=== PATIENT | female | born 1940 | race Caucasian/White ===

== ENCOUNTER 2017-10-23 17:51 | Inpatient (IN) | payer MEDICARE, OTHER ==
[2017-10-23 18:36] LABS: #Eosinphils 0.1 thou/uL (0.0-0.7); #Monocytes 1.1 thou/uL (0.11-0.59); #Neutrophils 10.6 thou/uL (1.40-6.50); %Eosinophils 0.4 % (0.0-10.0); %Lymphocytes 7.9 % (21.0-51.0); %Monocytes 8.3 % (0.0-10.0); %Neutrophils 83.4 % (42.0-75.0); Mean Corpuscular HGB CONC 31.8 g/dL (32.0-36.0); Mean Corpuscular Hemoglobin 28.8 pg (27.0-31.0); Mean Corpuscular Volume 90.7 fl (81.0-99.0); Mean Platelet Volume 8.3 fL (7.4-10.4); Platelet Count 204 thou/uL (130-400); Red Blood Cell (RBC) Count 2.42 mill/uL (4.20-5.40); White Blood Cell (WBC) Count 12.7 thou/uL (4.8-10.8)
[2017-10-23 18:43] LABS: PTT 43.2 SEC (22.9-36.1); Prothrombin Time 23.3 SEC (12.0-14.7)
[2017-10-23 18:53] LABS: ALT (SGPT) 141 U/L (8-55); AST (SGOT) 231 U/L (5-34); Albumin 2.3 g/dL (3.4-4.8); Alkaline Phosphatase 175 U/L (40-150); Anion Gap 12 mmol/L (10-20); BUN (Urea Nitrogen) 54 mg/dL (9.8-20.1); Bilirubin, Total 0.4 mg/dL (0.2-1.2); CK (CPK) 25 U/L (29-168); Calc. Creatinine Clearance 0 mL/min (70-130); Calcium 8.4 mg/dL (7.8-10.44); Carbon Dioxide 23 mmol/L (23-31); Chloride 105 mmol/L (98-107); Estimated GFR-MDRD 28; Globulin 2.9 g/dL (2.4-3.5); Glucose 88 mg/dL (83-110); Lipase 26 U/L (8-78); Protein, Total 5.2 g/dL (6.0-8.3); Sodium 136 mmol/L (136-145)
[2017-10-23 18:58] LABS: Troponin I 0.038 ng/mL (< 0.028)
[2017-10-23 19:00] LABS: Bilirubin Negative (Negative); Blood, Urine Negative (Negative); Clarity CLEAR (Clear); Glucose, Urine (Dipstick) Negative (Negative); Leukocyte Negative (Negative); Nitrite Negative (Negative); Protein, Urine (Dipstick) Negative (Neg-Trace); Specific Gravity, Urine 1.016 (1.002-1.036); Urobilinogen 0.2 mg/dL (0.2-1.0)
--- NOTE | 2017-10-23 19:14 | RAD ---
PORTABLE AP CHEST X-RAY 10/23/17 Altered mental status. Bilateral upper extremity edema. Recent diagnosis of UTI. COMPARISON: 05/31/13. FINDINGS: The cardiac silhouette is magnified by projection but is stable in size compared to the prior exam. T here is minimal linear and patchy densities at the left lung base which may be related to atelectasis . Developing area of pneumonitis cannot be entirely excluded. There is a curvilinear density overlyin g the lateral right upper lung zone which probably related to overlying artifact. No other interval c hange. IMPRESSION: Linear and minimal patchy densities left lung base probably related superimposition of structures and atelectasis. However, if there is clinical concern for pneumonia, followup chest x-ray is recommende d. POS: [facility]
[2017-10-23 19:43] LABS: Bicarbonate (HCO3v) 25.3 mmol/L (1.0-85.0); Calcium, Ionized 1.18 mmol/L (1.12-1.32); Hemoglobin - Calc 7.2 g/dL (12.0-18.0); O2 Tension (PvO2) 37.6 mmHg (35.0-45.0); Potassium 3.9 mmol/L (3.4-4.7); T. Carbon Dioxide 26.5 mmol/L (1.0-85.0); pH (Venous) 7.432 (7.35-7.45); vO2 Saturation-calc 73.4 % (94-98)
[2017-10-23] MEDS ORDERED: Furosemide 40 MG/4 ML VIAL ONE (19:43)
[2017-10-23] MEDS ORDERED: Vancomycin HCl 1.5 GM in Sodium Chloride 0.9% 250 ML 300 ML IVPB SCH (19:45)
[2017-10-23] MEDS ORDERED: Azithromycin 500 MG in Sodium Chloride 0.9% 250 ML 250 ML IVPB SCH (19:45)
[2017-10-23] MEDS ORDERED: Piperacillin/Tazobactam 4.5 GM in Sodium Chloride 0.9% 100 ML IVPB SCH (19:45)
--- NOTE | 2017-10-23 19:57 | CT ---
NONCONTRAST CT HEAD: 10/23/17 HISTORY: Confusion, falls, altered mental status. COMPARISON: 12/01/16. FINDINGS: Again noted are mild chronic small vessel ischemic changes and cerebral volume loss. The ventricular system is normal in size, shape and position. There is no evidence of an acute cortical infarction, h emorrhage, mass effect or midline shift. There has been no other interval change compared to the prio r study. No calvarial fracture is seen. IMPRESSION: 1. No acute intracranial abnormalities are demonstrated. 2. Mild chronic small vessel ischemic changes and cerebral volume loss. POS: [facility]
[2017-10-23] MEDS ORDERED: HYDROcodone/Acetaminophen 5/325 mg Tablet PO PRN ×2 (22:21)
[2017-10-23] MEDS ORDERED: Ondansetron ODT 4 MG TAB SL PRN (22:21)
[2017-10-23] MEDS ORDERED: Acetaminophen 325 MG TAB PO PRN (22:21)
[2017-10-23] MEDS ORDERED: Ondansetron HCl/PF 4 MG/2 ML Vial IVP PRN (22:21)
[2017-10-23] MEDS ORDERED: Sodium Chloride 0.9% 1,000 ML IV SCH (22:45)
[2017-10-23] MEDS ORDERED: Bisacodyl 5 MG TAB PO PRN (22:45)
[2017-10-23] MEDS ORDERED: Senokot 8.6 MG TAB PO PRN (22:45)
[2017-10-23 23:45] LABS: CRP (Inflammatory) 25.49 mg/dL (= or < 0.5); Uric Acid 11.9 mg/dL (2.6-6.0)
[2017-10-23 23:50] LABS: Troponin I 0.033 ng/mL (< 0.028)
[2017-10-24 06:07] LABS: #Lymphocytes 0.3 thou/uL (1.20-3.40); #Monocytes 0.3 thou/uL (0.11-0.59); #Neutrophils 9.2 thou/uL (1.40-6.50); %Basophils 0.2 % (0.0-1.0); %Eosinophils 0.2 % (0.0-10.0); %Lymphocytes 2.9 % (21.0-51.0); %Monocytes 3.3 % (0.0-10.0); %Neutrophils 93.4 % (42.0-75.0); Hemoglobin 6.7 g/dL (12.0-16.0); Mean Corpuscular HGB CONC 31.8 g/dL (32.0-36.0); Mean Corpuscular Volume 91.2 fl (81.0-99.0); Mean Platelet Volume 8.5 fL (7.4-10.4); Platelet Count 178 thou/uL (130-400); RBC Distribution Width 16.9 % (11.5-14.5); Red Blood Cell (RBC) Count 2.31 mill/uL (4.20-5.40); White Blood Cell (WBC) Count 9.9 thou/uL (4.8-10.8)
[2017-10-24 06:23] LABS: ALT (SGPT) 116 U/L (8-55); AST (SGOT) 163 U/L (5-34); Albumin 2.2 g/dL (3.4-4.8); Alkaline Phosphatase 158 U/L (40-150); Anion Gap 12 mmol/L (10-20); BUN (Urea Nitrogen) 56 mg/dL (9.8-20.1); Bilirubin, Total 0.4 mg/dL (0.2-1.2); Calc. Creatinine Clearance 43 mL/min (70-130); Calcium 8.5 mg/dL (7.8-10.44); Carbon Dioxide 24 mmol/L (23-31); Chloride 106 mmol/L (98-107); Estimated GFR-MDRD 26; Globulin 3.4 g/dL (2.4-3.5); Glucose 92 mg/dL (83-110); Potassium 3.6 mmol/L (3.5-5.1); Protein, Total 5.6 g/dL (6.0-8.3); Sodium 138 mmol/L (136-145)
--- NOTE | 2017-10-24 06:39 | HP ---
PRIMARY CARE PHYSICIAN: Des Nguyen M.D. CHIEF COMPLAINT: Altered mental status. HISTORY OF PRESENT ILLNESS: The patient is a 77-year-old female with past medical history of hyperte nsion, hypothyroidism, depression and hypercholesterolemia, who presented to the hospital with compla ints of altered mental status. I spoke with patient's son, who is at the bedside, who stated that fi ve weeks ago, the patient was living independently at home; however, after a fall, she was initially admitted at [facility]. The patient stated that at [facility], she was diagnosed with C. diff and with josé miguel lulitis of her bilateral lower extremities. The patient then was transferred to rehab for physical t herapy and strengthening. However, she continued to decline and had altered mental status at the [facility], so she was transferred to [place] for altered mental status. The patient was found to owens ve a UTI. She was then treated for the UTI and then was transferred back to the rehab facility. The patient's son stated that she was doing well; however, when he saw her today, she was very confused and very altered. Henceforth, she was transferred to [place] for further evaluation. PAST MEDICAL HISTORY: Hypertension; hypothyroidism; depression; hypercholesterolemia; possible gout versus rheumatoid arthritis, not sure. PAST SURGICAL HISTORY: Tonsillectomy, hysterectomy, cholecystectomy, appendectomy, melanoma removal in her back, rotator cuff surgery, and carpal tunnel release. SOCIAL HISTORY: She denies any tobacco, alcohol or drug use. ALLERGIES: She is allergic to LEVAQUIN and SULFA MEDICATIONS. REVIEW OF SYSTEMS: Unable to perform since the patient not very cooperative. PHYSICAL EXAMINATION: VITAL SIGNS: Temperature of 98.3, heart rate of 81, respirations of 18, 95% on 2 liters, blood press ure 130/58. GENERAL: She is awake, alert, and oriented x2 herself and her son. CARDIOVASCULAR: S1, S2 present. No murmurs, rubs or gallops. LUNGS: Mild crackles to lower bases and mild wheezing, expiratory. ABDOMEN: Soft, nontender. Bowel sounds are present x2. EXTREMITIES: She has got significant pitting edema to bilateral hands and she has got significant er ythema around at the joints of her fingers, which appears to look like tophi possible gout, very tend er to touch. Lower extremity, no edema. Pedal pulses are present x2. SKIN: The patient does have a significant possible stage 2 versus stage 3 decubitus on her left butt ock area with significant eschar covering the ulcer and also she has got significant anasarca. LABORATORY DATA AND IMAGING: White count of 12.7, hemoglobin of 7.0 and dropped from baseline of 11. 8, hematocrit of 21.9, platelets of 204. She has got no bands. Chemistry indicates a sodium of 140, potassium of 3.9, creatinine of 1.78, BUN of 54. Mildly elevated AST at 231, ALT at 141, alkaline p hosphatase at 175. CK is 25. BNP is 244.6. She did have mildly elevated troponin of 0.038 and sign ificantly elevated CRP at 25.4. Her urine is significantly normal. Her INR is 2. She did have a ch est x-ray, which indicated she does have some mild patchy density in the left lung base. She did hav e a CT head, which indicated mild chronic small vessel ischemia and cerebral volume loss. ASSESSMENT AND PLAN: The patient is a 77-year-old female, who was admitted for altered mental status . 1. Acute metabolic encephalopathy, possible due to pneumonia, possible secondary to hospital-acquire d pneumonia. We will start the patient on cefepime and vancomycin for now. We will also give patien t some DuoNebs. The patient has been using oxygen at 2-3 liters. We will continue that. 2. Significant erythema noted at her joint fingers, possible gout. It appears the patient possibly has tophi. We will check uric acid. Also, we will check a sed rate and CRP. Given her elevated cre atinine, unable to give her NSAIDs, may start her on low dose of steroids, which might help her since she has significant pain on moving her fingers bilaterally. 3. Clinically, she appears to be dehydrated. We will give her gentle fluids only 1 liter. She may need to be diuresed; however, according to the patient's son, she has not been eating very much, so t here is also a malnutrition component. 4. Malnutrition. The patient has not been eating very much. We will get dietitian. Continue to mo guillermo. 5. She does have a significant stage, appears maybe 2 decubitus, 2 maybe 3 on her left thigh. We wi ll get wound care to come see the patient. 6. Mild elevated LFTs. We will continue to monitor. If they do not tend to improve, may consider g etting a right upper quadrant ultrasound. 7. Depression. The patient's son stated that she has been pretty depressed recently. We will katalina nue to monitor. 8. We will also get a swallow evaluation for the patient and get physical therapy and occupational t herapy. 9. Significant anemia. The patient's last H&H was 11 and now is 7. Unknown patient's baseline. Sh e also does have an elevated BUN, which could be secondary to dehydration versus maybe a slow GI blee d. We will check a stool for occult and check a reticular count and continue to monitor. 10. History of Clostridium difficile. Continue to monitor. 11. Deep venous thrombosis prophylaxis. We will put the patient on sequential compression devices a nd subcu heparin.
[2017-10-24] MEDS: CEFEPIME IVPB SCH ×2 (08:23→20:59)
[2017-10-24] MEDS: SODIUM CHLORIDE 0.9% IVPB SCH ×2 (08:23→20:59)
[2017-10-24] MEDS ORDERED: Prevnar 13-Val Conj/PF 0.5 ML SYRINGE IM ONE (09:00)
[2017-10-24] MEDS ORDERED: Famotidine/PF 20 mg/2ml Vial SLOW IVP SCH ×2 (09:00)
[2017-10-24] MEDS ORDERED: Heparin 5,000 UNITS/ML VIAL SC SCH (09:00)
[2017-10-24] MEDS ORDERED: FLU VACC TS2017-18 (>65YR) 0.5 ML SYRINGE IM ONE (09:00)
[2017-10-24] MEDS ORDERED: VANCOMYCIN IVPB PRN (09:04)
[2017-10-24] MEDS ORDERED: [UNRECOGNIZED DRUG - OTHER] IVPB PRN (09:04)
[2017-10-24 09:21] LABS: Reticulocyte Count 6.8 % (0.5-1.5)
[2017-10-24 09:44] LABS: Iron 17 ug/dL (50-170); Iron Binding Capacity, Total 103 mcg/dL (265-497)
[2017-10-24] MEDS: Pantoprazole 40 MG VIAL IVP SCH ×2 (10:04→20:58)
[2017-10-24 10:32] LABS: Vitamin B12 Greater than 2000 pg/mL (211-911)
--- NOTE | 2017-10-24 10:54 | RAD ---
KUB: Date: 10/24/17 PROVIDED CLINICAL HISTORY: Altered mental status. FINDINGS: The abdominal bowel gas pattern is nonspecific. Phleboliths overlie the pelvis. No radiographically a pparent urinary tract calculi. The supine nature of this study is limited in sensitivity for detectio n of pneumoperitoneum. Lung bases are not well visualized. There is a rectangular density overlying t he abdominopelvic junction presumably reflecting material external to the patient. Degenerative garsia es are seen involving the spine. IMPRESSION: 1. Rectangular density overlies the abdomen in the midline at the level of the abdominopelvic juncti on, presumably reflecting material external to the patient. Clinical correlation is necessary. 2. Nonspecific bowel gas pattern. POS: [facility]
--- NOTE | 2017-10-24 14:03 | ULT ---
BILATERAL UPPER EXTREMITY VENOUS DOPPLER: Date: 10/24/17 PROVIDED CLINICAL HISTORY: Bilateral upper extremity swelling. FINDINGS: Iraheta scale and color Doppler sonography with spectral analysis was performed of the bilateral interna l jugular, subclavian, axillary, cephalic, basilic, brachial, ulnar, and radial veins, demonstrating a normal sonographic appearance to each. IMPRESSION: No evidence for upper extremity venous thrombosis. POS: [facility]
[2017-10-24] MEDS ORDERED: Vancomycin HCl 1.25 GM in Sodium Chloride 0.9% 250 ML 250 ML IVPB SCH (21:00)
[2017-10-25 05:17] LABS: #Basophils 0.1 thou/uL (0.0-0.2); #Lymphocytes 0.9 thou/uL (1.20-3.40); #Monocytes 0.7 thou/uL (0.11-0.59); #Neutrophils 7.6 thou/uL (1.40-6.50); %Basophils 1.5 % (0.0-1.0); %Eosinophils 0.2 % (0.0-10.0); %Lymphocytes 9.5 % (21.0-51.0); %Monocytes 7.7 % (0.0-10.0); %Neutrophils 81.1 % (42.0-75.0); Hemoglobin 8.4 g/dL (12.0-16.0); Mean Corpuscular HGB CONC 31.6 g/dL (32.0-36.0); Mean Corpuscular Hemoglobin 28.2 pg (27.0-31.0); Mean Corpuscular Volume 89.1 fl (81.0-99.0); Mean Platelet Volume 8.4 fL (7.4-10.4); Platelet Count 212 thou/uL (130-400); White Blood Cell (WBC) Count 9.4 thou/uL (4.8-10.8)
[2017-10-25 05:20] LABS: Prothrombin Time 23.1 SEC (12.0-14.7)
[2017-10-25 05:21] LABS: PTT 48.5 SEC (22.9-36.1)
[2017-10-25 05:27] LABS: ALT (SGPT) 95 U/L (8-55); AST (SGOT) 116 U/L (5-34); Albumin 2.4 g/dL (3.4-4.8); Alkaline Phosphatase 149 U/L (40-150); Anion Gap 12 mmol/L (10-20); BUN (Urea Nitrogen) 54 mg/dL (9.8-20.1); Bilirubin, Total 0.4 mg/dL (0.2-1.2); Calc. Creatinine Clearance 41 mL/min (70-130); Calcium 8.6 mg/dL (7.8-10.44); Carbon Dioxide 25 mmol/L (23-31); Chloride 108 mmol/L (98-107); Estimated GFR-MDRD 25; Globulin 3.6 g/dL (2.4-3.5); Glucose 70 mg/dL (83-110); Sodium 142 mmol/L (136-145)
[2017-10-25] MEDS: CEFEPIME IVPB SCH (09:24)
[2017-10-25] MEDS: SODIUM CHLORIDE 0.9% IVPB SCH (09:24)
[2017-10-25] MEDS: Pantoprazole 40 MG VIAL IVP SCH (09:25)
--- NOTE | 2017-10-25 09:53 | RAD ---
CHEST ONE VIEW: HISTORY: Shortness of breath. COMPARISON: Chest, one view, 10/23/2017. FINDINGS: Similar appearance of the lungs with linear and alveolar opacities. There are also opacities in the left upper lobe. No acute osseous abnormality. Heart size is mildly enlarged. IMPRESSION: Similar appearance of the interstitial and alveolar opacities of the lungs with worsening right upper lobe and left upper lobe opacities. This may reflect edema or infection. CT of the chest may be be neficial, if clinically warranted. POS: [facility]
--- NOTE | 2017-10-25 13:13 | PQF ---
CLINICAL DOCUMENTATION IMPROVEMENT CLARIFICATION FORM: ICD-10 Updated PLEASE DO AN ADDENDUM TO THE PROGRESS NOTE WITH ANY DOCUMENTATION UPDATES OR ADDITIONS AND CARRY THROUGH TO DC SUMMARY. THANK YOU. DATE: 10/25/17 ATTN: DR. GONZALEZ Please exercise your independent, professional judgment in responding to the clarification form. Clinical indicators are provided on the bottom of this form for your review Please check appropriate box(s): [ ] Aspiration Pneumonia [ ] Aspiration Bronchitis [ ] Empirically treating Gram Negative Pneumonia [ ] Empirically treating Anaerobic Pneumonia [ ] Pneumonia secondary to (specify organism / underlying disease) [ ] Simple Pneumonia (community acquired - nosocomial) [ ] Bronchopneumonia [ ] Pneumonia of unknown etiology [ ] Other diagnosis [ ] Unable to determine In addition, please specify: Present on Admission (POA): [ ] Yes [ ] No [ ] Unable to determine For continuity of documentation, please document condition throughout progress notes and discharge summary. Thank You. CLINICAL INDICATORS - SIGNS / SYMPTOMS / LABS DX: PNEUMONIA RISKS: FROM CORRECTION RECENT HOSPITALIZATION TREATMENT: IV VANCOMYCIN (ER-PRESENT) IV ZITHROMAX (ER) IV ZOSYN (ER) IV MAXIPIME (10/24-PRESENT) SOLUMEDROL (10/24-PRESENT) (This form is maintained as a part of the permanent medical record) 2014 [employer]. All Rights Reserved HERNANDEZ [email or web address] Office: [phone] [facility]
--- NOTE | 2017-10-25 13:36 | CON ---
DATE OF CONSULTATION: 10/25/2017 REASON FOR CONSULTATION: Change in mental status, possible sepsis. HISTORY OF PRESENT ILLNESS: A 77-year-old who has a history of hypertension, hyperlipidemia, and caitlin anoma removal from her back who is a detention resident and was brought to the emergency room ayde use of change in mental status. About one year ago, patient was visiting her and then she wa s living at home. Her was in [facility] [place] and she tripped and fell and struck her head on the f selvin. She sustained a subarachnoid hemorrhage which was felt to be remained stable. She was managed conservatively. At this time, she was initially brought to [place] and was given diagnosis of urinary tract infection given antimicrobials and transferred back to rehab facility and then she w as found to be confused again and then she was brought over here and admitted. Initial findings, tem perature 98.3, heart rate 81, respirations 18, O2 sat 95% on arrival. She was described as awake and alert. She had a few inspiratory crackles at the lung bases with mild wheezing, some edema and ther e was noticeable inflammatory changes around the finger joints. LABORATORY DATA AND IMAGING DATA: Initial labs with white cell count 12.7, hemoglobin 7 with an MCV 90, platelets 204,000 with 83% neutrophils. INR 2.0, pH 7.43, pCO2 38, pO2 37, is a venous gas. Sod ium 138, creatinine 1.86 with baseline of 1.37, AST 163, ALT 116 and alkaline phosphatase 158. Uric acid 11.9, albumin 2.2 and 2.4. Urinalysis with essentially normal findings. Thus far, all the [facility] les submitted for culture have been negative. Influenza test was negative as well for antigen. Imag ing studies include brain CT with no acute intracranial abnormalities, small vessel changes. Abdomen x-ray rectangular densities in midline, just probably the monitor. There is a venogram which showed no evidence of upper extremity deep vein thrombosis and a chest x-ray with interstitial and alveolar opacities of lungs. Currently, Ms. Chu is sleeping, but she is arousable at least temporarily. Sh e will wake up, but is disoriented with mumble feel sounds, but most of her answers are basically yes or no. REVIEW OF SYSTEMS: Limited because of her mental state. According to the nurse, there has been no e vidence of diarrhea. She has numerous skin ulcers described below. PAST MEDICAL HISTORY: Hypertension, hypothyroidism, depression, hyperlipidemia, fall, gout, rheumato id arthritis per history. PAST SURGICAL HISTORY: Tonsillectomy, hysterectomy, cholecystectomy, appendectomy, melanoma removal. She had a recent fall with subarachnoidal hemorrhage which was managed conservatively. SOCIAL HISTORY: Lives in a detention. Never a smoker. ALLERGIES: LEVAQUIN and SULFA. CURRENT MEDICATION LIST: Dulcolax, cefepime, Solu-Medrol, Protonix, Senokot, vancomycin. PHYSICAL EXAMINATION: VITAL SIGNS: T-max 99, currently 98.7, blood pressure 179/79, pulse 96, respirations 16-20, O2 sat 9 6%. SKIN: Shows areas of ulceration in the lateral aspect of the right thigh and left gluteal region wit h a necrotic base, irregular shaped, measuring about 12 cm x 2 cm to 4 cm. There are small ulceratio ns in the intertriginous areas in abdomen and breast. No lymphadenopathy. Peripheral IV access. e has a Moreno catheter with output and input -695. HEENT: Ocular movements are conjugate. Pupils are equal, but they are quite dilated about 4 mm and symmetric. Oral cavity with still quite a few teeth in place. Oral mucosa is moist. NECK: Supple. LUNGS: With symmetric breath sounds. No obvious crackles or wheezing. HEART: S1, S2. Few PACs or PVCs. ABDOMEN: Soft, nondistended or tender. Patient has marked tenderness on palpation of her hand and f eet joints. ASSESSMENT: 1. 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 2. Hypertension. 3. Cognitive dysfunction/delirium. 4. X-ray changes consistent with congestive changes. DISCUSSION: The most likely scenario is polyarticular gout with inflammatory changes. This could be confirmed by sampling one of the tophaceous areas and submitted to pathology for microscopic evaluat ion, but the clinical findings, plus the elevated uric acid make this diagnosis very likely. An infe ctious process appears to be less likely. The lung changes appeared to be congestive in nature. Rec ommend discontinuation of antimicrobial therapy and address the tophaceous gout. We will need to mon itor cultures until final report.
--- NOTE | 2017-10-25 15:11 | RAD ---
THREE VIEWS LEFT WRIST: Date: 10-25-17 History: Left hand pain. FINDINGS: There is no fracture or dislocation seen. There is minimal ulnar minus configuration. There does appe ar to be subcutaneous soft tissue swelling at the dorsal aspect of the hand. IMPRESSION: 1. No acute osseous abnormality left wrist. 2. Minimal ulnar minus configuration. 3. Subcutaneous soft tissue swelling dorsal aspect of the hand. POS: [facility]
--- NOTE | 2017-10-25 15:29 | RAD ---
THREE VIEWS LEFT HAND: INDICATIONS: Left hand pain. COMPARISON: Right foot radiograph dated 01/19/2011 and left foot radiograph dated 01/18/2015 FINDINGS: There is periarticular erosive change involving the index finger PIP joint, long finger DIP joint, an d small finger DIP joint. There is also some healed erosive change involving the left long finger me tacarpal head. There is mild STT osteoarthrosis. There is scattered mild IP osteoarthrosis. There is soft tissue swelling of the left hand. No acute osseous abnormality is evident. IMPRESSION: Periarticular erosive change involving the left hand, as above. Findings could be secondary to infla mmatory arthropathy, such as rheumatoid arthritis. Other entities such as psoriatic or Luis Enrique's arth ritis is not entirely excluded. POS: [facility]
[2017-10-25] MEDS ORDERED: Phytonadione 10 MG/ML AMP PO SCH (18:00)
--- NOTE | 2017-10-25 20:26 | PDOC.PN ---
- Subjective Encounter Start Date: 10/25/17 Encounter Start Time: 10:30 Patient seen and examined. No new complaints. No overnight events. Mentation improving. - Objective Resuscitation Status: Resuscitation Status DNR:Do Not Resuscitate MAR Reviewed: Yes Vital Signs & Weight: Vital Signs (12 hours) Temp Pulse Pulse Pulse Resp BP BP 10/25/17 19:00 90 22 H 10/25/17 15:44 99.7 F H 101 H 20 10/25/17 15:17 104 H 104 H 174/86 H 168/78 H 10/25/17 14:32 91 20 10/25/17 12:23 98.7 F 96 20 10/25/17 11:01 107 H 182/82 H 10/25/17 10:18 88 16 BP Pulse Ox Pulse Ox Pulse Ox 10/25/17 19:00 95 10/25/17 15:44 134/74 93 L 10/25/17 15:17 92 L 92 L 10/25/17 14:32 93 L 10/25/17 12:23 172/79 H 96 10/25/17 11:01 94 L 10/25/17 10:18 100 Weight Admit Weight 233 lb 3 oz Weight 229 lb 11.2 oz I&O: 10/24/17 10/25/17 10/26/17 06:59 06:59 06:59 Intake Total 525 905 240 Output Total 750 1600 675 Balance -225 -695 -435 Result Diagrams: 10/26/17 04:18 10/26/17 04:18 Additional Labs: Accuchecks 10/25/17 13:42 POC Glucose 102 EKG Reviewed by me: Yes (Tele SR) Phys Exam - Physical Examination Constitutional: NAD Neck: no JVD Respiratory: no rhonchi, wheezing present (scat) Dec AE at bases, Symmetrical Cardiovascular: RRR, no rub no heaves/pulsations Gastrointestinal: soft, non-tender, positive bowel sounds Musculoskeletal: edema present (B/L UE) Neurological: non-focal, moves all 4 limbs Psychiatric: A&O x 3 Dx/Plan - Plan DVT proph w/SCDs IMPRESSION: 1. Toxic Metabolic Encephalopathy - multifactorial. prob due to Pneumonia ? Aspiration 2. Anemia ?etio 3. Swallow dys - at [facility] soft/thin liqd 4. Moderate PEM 5. HTN / HLD / Deconditioning / Recent UTI at [facility]/ Recent C diff at [facility] prior to [facility]/ Depression / Coagulopathy 6. Other issues per H&P PLAN: * Consult ID/GI * s/p 1 units PRBC. * Cont modified diet * Cont Atbx / Steroids * Monitor LFTs * Vit K to correct coagulopathy * Cont current meds as below Review of Systems - Review of Systems Respiratory: negative: Cough, Dry, Shortness of Breath, Hemoptysis, SOB with Excertion, Pleuritic Pain, Sputum, Wheezing Gastrointestinal: negative: Nausea, Vomiting, Abdominal Pain, Diarrhea, Constipation, Melena, Hematochezia - Medications/Allergies Allergies/Adverse Reactions: Allergies Allergy/AdvReac Type Severity Reaction Status Date / Time ciprofloxacin [From Cipro] Allergy Verified 10/23/17 23:04 colchicine Allergy Verified 10/23/17 23:04 levofloxacin [From Levaquin] Allergy Verified 10/23/17 23:04 Sulfa (Sulfonamide Allergy Verified 10/23/17 23:04 Antibiotics) Medications: Current Medications Albuterol/Ipratropium (Duoneb) 3 ml NEB [id number] [facility] Last Admin: 10/25/17 19:00 Dose: 3 ml Bisacodyl (Dulcolax) 10 mg PO DAILYPRN PRN PRN Reason: Constipation Calcium/Vitamin D (Caltrate 600 + Vit D) 1 tab PO BID-[facility] Cyanocobalamin (Vitamin B-12) 1,000 mcg PO DAILY [facility] Folic Acid (Folvite) 1 mg PO DAILY [facility] Methylprednisolone Sodium Succinate (Solu-Medrol) 40 mg IVP DAILY [facility] Last Admin: 10/25/17 09:25 Dose: 40 mg Multivitamins (Theragran) 1 tab PO DAILY [facility] Nystatin (Mycostatin Powder) 0 gm TOP BID [facility] Pantoprazole Sodium (Protonix) 40 mg PO BID [facility] Senna (Senokot) 2 tab PO HSPRN PRN PRN Reason: Constipation Sodium Chloride (Flush - Normal Saline) 10 ml IVF Q12HR [facility] Last Admin: 10/25/17 09:25 Dose: 10 ml Sodium Chloride (Flush - Normal Saline) 10 ml IVF PRN PRN PRN Reason: Saline Flush Last Admin: 10/25/17 09:25 Dose: 10 ml
[2017-10-25] MEDS: Nystatin Powder 15 GM BOT TOP SCH (20:43)
[2017-10-26 05:32] LABS: INR-International Normal Ratio 1.6; Prothrombin Time 19.6 SEC (12.0-14.7)
[2017-10-26 05:39] LABS: #Monocytes 0.9 thou/uL (0.11-0.59); #Neutrophils 9.4 thou/uL (1.40-6.50); %Basophils 0.2 % (0.0-1.0); %Eosinophils 0.1 % (0.0-10.0); %Lymphocytes 8.5 % (21.0-51.0); %Monocytes 7.9 % (0.0-10.0); %Neutrophils 83.3 % (42.0-75.0); Hemoglobin 7.8 g/dL (12.0-16.0); Mean Corpuscular HGB CONC 31.2 g/dL (32.0-36.0); Mean Corpuscular Hemoglobin 27.6 pg (27.0-31.0); Mean Corpuscular Volume 88.7 fl (81.0-99.0); Mean Platelet Volume 8.5 fL (7.4-10.4); Platelet Count 208 thou/uL (130-400); Red Blood Cell (RBC) Count 2.83 mill/uL (4.20-5.40); White Blood Cell (WBC) Count 11.2 thou/uL (4.8-10.8)
[2017-10-26 05:45] LABS: ALT (SGPT) 89 U/L (8-55); AST (SGOT) 113 U/L (5-34); Albumin 2.3 g/dL (3.4-4.8); Alkaline Phosphatase 143 U/L (40-150); Anion Gap 11 mmol/L (10-20); BUN (Urea Nitrogen) 51 mg/dL (9.8-20.1); Bilirubin, Total 0.4 mg/dL (0.2-1.2); Calc. Creatinine Clearance 41 mL/min (70-130); Calcium 8.6 mg/dL (7.8-10.44); Carbon Dioxide 26 mmol/L (23-31); Chloride 111 mmol/L (98-107); Estimated GFR-MDRD 26; Globulin 3.4 g/dL (2.4-3.5); Glucose 90 mg/dL (83-110); Magnesium 1.9 mg/dL (1.6-2.6); Potassium 3.3 mmol/L (3.5-5.1); Protein, Total 5.7 g/dL (6.0-8.3); Sodium 145 mmol/L (136-145)
[2017-10-26 06:05] LABS: HBCM Index 0.06 S/CO (0-0.79); HBSAg Index 0.46 S/CO (0-0.99); Hep A IgM AB Non-Reactive (NonReactive); Hep B Surf Ag Non-Reactive S/CO (NonReactive); Hep C IgG Ab Non-Reactive (NonReactive); Hepatitis B Core IGM Abs Non-Reactive (NonReactive)
--- NOTE | 2017-10-26 08:35 | CON ---
DATE OF CONSULTATION: 10/25/2017 REASON FOR CONSULTATION: Anemia. HISTORY OF PRESENT ILLNESS: Ms. Chu is a 77-year-old female who was admitted to the hospital on , her last hospitalization here was about a year ago. She was brought to the emergency room b y her family from a assisted due to her bilateral upper extremity edema and altered mental status . Apparently, she has been recent UTIs as well. She was hemodynamically stable. She had a CAT scan of her brain, showed some mild ischemic changes, but no acute events. She had a chest x-ray, linear patchy densities, some possible atelectasis. Laboratory studies: Peripheral white count of 12.7, h emoglobin of 7, MCV of 90, platelet count of 204, retic of 7 and ESR of 36. INR was 2. Sodium was 1 36, potassium 4, BUN and creatinine were 54 and 1.78, AST 231, ALT 141, alkaline phosphatase 175. CR P was 25, BNP 244, total protein 5.2, albumin 2.3, lipase was normal, B12 was greater than 2000, iron was low at 17; however, TIBC was also low at 103 and ferritin was elevated at 471. Urinalysis was n egative. MEAGAN was performed which was normal. Abdominal x-ray was nonspecific. Bilateral Dopplers w ere negative. Hemoglobin dropped to 6.7 on the and occult blood was performed today which was n egative. She did receive 1 unit of blood yesterday and her hemoglobin today is 8.4. She has been se en by Dr. Huerta for possible infection when she felt to have tophaceous gout. PAST MEDICAL HISTORY: Hypertension, hypothyroidism, depression, hypercholesterolemia, possible gout versus rheumatoid arthritis. PAST SURGICAL HISTORY: Tonsillectomy, hysterectomy, cholecystectomy, appendectomy, melanoma removed from the back, rotator cuff surgery and carpal tunnel surgery. SOCIAL HISTORY: The patient denies alcohol or tobacco. She lives in assisted. ALLERGIES: LEVAQUIN and SULFA MEDICATIONS. REVIEW OF SYSTEMS: The patient is not oriented to person, place, and time, cannot really give a reli able review of systems, otherwise, she denies any abdominal pain, denies any melena, denies any hemat emesis. She states her appetite is good and that she has had a good day. According to the chart, e nurses report that she has not had history of dementia and just over the past 4-5 weeks that she owens s been having some altered mental status. HOME MEDICATIONS: Trazodone, hydralazine, vitamin B12, losartan, CoQ10, Zoloft, K-Dur, polyvinyl alc ohol eyedrops, Megace, magnesium, Synthroid, estrogen, Flexeril, carvedilol, Wellbutrin, atorvastatin , acetaminophen. PRESENT MEDICATIONS: DuoNeb, Dulcolax, Solu-Medrol 40 IV daily, nystatin, Protonix q.12 hours, and S enokot. PHYSICAL EXAMINATION: VITAL SIGNS: Temperature is 99 and at T max today admission she was 98.7. She has had one oth er temperature of 99. Pulse is 101 to 96, blood pressure is 134/78, O2 sat 93%. GENERAL: She is pleasant. She is awake but she is not oriented to person, place or time. LUNGS: Clear. HEART: Regular rate and rhythm. ABDOMEN: Slightly protuberant. There is no shifting dullness or fluid waves. There is no palpable hepatosplenomegaly. EXTREMITIES: There is no peripheral edema. LABORATORIES AND IMAGING: As per HPI. ASSESSMENT: 1. Anemia. She has indices of chronic disease with low iron, low TIBC, and high ferritin, normal B1 2. She has heme negative stool. No signs of acute gastrointestinal bleeding. At this time, no endo scopy is indicated. 2. Altered mental status. I will check her ammonia level as she has abnormal liver enzymes. 3. Abnormal liver enzymes, would work this up serologically with an ultrasound of the liver. We yoel l continue to follow along with you.
[2017-10-26] MEDS: Calcium Carbonate + Vit D 1 TAB PO SCH ×2 (08:41→16:39)
[2017-10-26] MEDS: Multivit, Therapeutic 1 TAB PO SCH (08:41)
[2017-10-26] MEDS: Folic Acid 1 MG TAB PO SCH (08:41)
[2017-10-26] MEDS: Nystatin Powder 15 GM BOT TOP SCH ×2 (08:42→21:15)
[2017-10-26] MEDS ORDERED: Cyanocobalamin (Vitamin B-12) 1,000 MCG TAB PO SCH (09:00)
--- NOTE | 2017-10-26 09:09 | ULT ---
HEPATIC ULTRASOUND WITH DUPLEX EVALUATION: Indication: Abnormal LFTs. FINDINGS: No focal hepatic lesion is evident. The liver measures 14.8 cm in greatest longitudinal dimension. Th ere is appropriate hepatopedal flow seen within the hepatic vasculature. There is appropriate flow se en within the hepatic vein and splenic artery. Visualized aspects of the aorta appear within normal limits. No aneurysmal dilatation is noted. The gallbladder was not visualized. The common bile duct measured 4.1 mm. The pancreas is largely obscured by overlying bowel gas. Right kidney measures 9 x 4.6 x 4.8 cm. The left kidney measures 9.7 x 5.3 x 4.6 cm. No focal lesion or hydronephrosis is evident. The visualized spleen measures 10.8 cm. No free fluid is identified. IMPRESSION: 1. No acute abnormality. 2. Nonvisualization of the gallbladder. POS: [facility]
--- NOTE | 2017-10-26 11:59 | PRG ---
DATE OF SERVICE: 10/26/2017 SUBJECTIVE: The patient is still confused. She does not seem to be oriented to place and time. She denies any abdominal pain. She is according to nursing personnel eating well. OBJECTIVE: VITAL SIGNS: Temperature 97.9, pulse 90, respiratory rate 16, blood pressure 151/89. CHEST: Clear. CARDIOVASCULAR: Regular rate and rhythm. ABDOMEN: Soft, obese, nontender. LABORATORY DATA: Showed a hepatitis panel to be normal. IgG and IgM levels were normal. Chemistrie s show potassium 3.3, chloride 111, BUN 51, creatinine 1.90, AST of 113, ALT of 89, albumin of 2.3. Vitamin B12 level and folate level were both normal. Repeat PT showed a PT 19.6, INR 1.6. CBC shows a white blood cell count 11.2, hemoglobin 7.8, hematocrit 25.1. Stool for Hemoccult was negative. The patient underwent an abdominal ultrasound which was essentially normal. No gallbladder was seen. ASSESSMENT: 1. Anemia of chronic disease. 2. Elevated liver enzymes - suspect most likely fatty liver. 3. Altered mental status. RECOMMENDATIONS: 1. Continue to follow H&H. 2. Continue proton-pump inhibitor. 3. Will repeat LFTs in 48 hours.
[2017-10-26] MEDS ORDERED: Bupropion 150 MG XL TAB PO SCH (12:15)
[2017-10-26] MEDS ORDERED: Levothyroxine Sodium 125 MCG TAB PO SCH (12:15)
[2017-10-26] MEDS ORDERED: Phytonadione 10 MG/ML AMP PO SCH (19:45)
--- NOTE | 2017-10-26 19:45 | PDOC.PN ---
- Subjective Encounter Start Date: 10/26/17 Encounter Start Time: 10:30 Patient seen and examined. No new complaints. No overnight events - Objective Resuscitation Status: Resuscitation Status DNR:Do Not Resuscitate MAR Reviewed: Yes Vital Signs & Weight: Vital Signs (12 hours) Temp Pulse Pulse Pulse Resp BP BP 10/26/17 19:24 97 20 10/26/17 16:36 98.4 F 103 H 20 10/26/17 14:42 90 16 10/26/17 12:00 99 F 95 22 H 10/26/17 10:33 90 16 10/26/17 09:42 105 H 107 H 129/76 145/86 H BP Pulse Ox 10/26/17 19:24 92 L 10/26/17 16:36 136/82 92 L 10/26/17 14:42 10/26/17 12:00 134/84 91 L 10/26/17 10:33 10/26/17 09:42 Weight Admit Weight 233 lb 3 oz Weight 225 lb 4.8 oz I&O: 10/25/17 10/26/17 10/27/17 06:59 06:59 06:59 Intake Total 905 240 478 Output Total 1600 1225 700 Balance -695 -985 -222 Result Diagrams: 10/26/17 04:18 10/26/17 04:18 EKG Reviewed by me: Yes (Tele SR) Phys Exam - Physical Examination Constitutional: NAD Respiratory: no wheezing, no rhonchi Scat rales at bases Cardiovascular: RRR, no rub Gastrointestinal: soft, non-tender, positive bowel sounds Neurological: moves all 4 limbs Dx/Plan - Plan DVT proph w/SCDs IMPRESSION: 1. Toxic Metabolic Encephalopathy - multifactorial. prob due to Pneumonia ? Aspiration 2. Anemia - prob due to chronic disease 3. Swallow dys - on modified diet 4. Moderate PEM 5. HTN / HLD / Deconditioning / Recent UTI at [facility]/ Recent C diff at [facility] prior to [facility]/ Depression / Coagulopathy / Prob vit K def 6. Other issues per H&P PLAN: * ID/GI following * s/p 1 units PRBC. * Cont modified diet * Cont Steroids for possible gout flare * Monitor LFTs * Cont Vit K to correct coagulopathy * Cont current meds as below * Resume Levothyroxine, SSRIs and Bupropion Review of Systems - Review of Systems Respiratory: negative: Cough, Dry, Shortness of Breath, Hemoptysis, SOB with Excertion, Pleuritic Pain, Sputum, Wheezing Cardiovascular: negative: chest pain, palpitations, orthopnea, paroxysmal nocturnal dyspnea, edema, light headedness - Medications/Allergies Allergies/Adverse Reactions: Allergies Allergy/AdvReac Type Severity Reaction Status Date / Time ciprofloxacin [From Cipro] Allergy Verified 10/23/17 23:04 colchicine Allergy Verified 10/23/17 23:04 levofloxacin [From Levaquin] Allergy Verified 10/23/17 23:04 Sulfa (Sulfonamide Allergy Verified 10/23/17 23:04 Antibiotics) Medications: Current Medications Albuterol/Ipratropium (Duoneb) 3 ml NEB [id number] [facility] Last Admin: 10/26/17 19:24 Dose: 3 ml Bisacodyl (Dulcolax) 10 mg PO DAILYPRN PRN PRN Reason: Constipation Bupropion HCl (Wellbutrin Xl) 150 mg PO DAILY [facility] Calcium/Vitamin D (Caltrate 600 + Vit D) 1 tab PO BID-[facility] Last Admin: 10/26/17 16:39 Dose: 1 tab Folic Acid (Folvite) 1 mg PO DAILY [facility] Last Admin: 10/26/17 08:41 Dose: 1 mg Levothyroxine Sodium (Synthroid) 125 mcg PO 0600 [facility] Methylprednisolone Sodium Succinate (Solu-Medrol) 40 mg IVP DAILY [facility] Last Admin: 10/26/17 08:41 Dose: 40 mg Multivitamins (Theragran) 1 tab PO DAILY [facility] Last Admin: 10/26/17 08:41 Dose: 1 tab Nystatin (Mycostatin Powder) 0 gm TOP BID [facility] Last Admin: 10/26/17 08:42 Dose: 1 applic Pantoprazole Sodium (Protonix) 40 mg PO BID [facility] Last Admin: 10/26/17 08:41 Dose: 40 mg Phytonadione (Aquamephyton) 5 mg PO ONE [facility] Senna (Senokot) 2 tab PO HSPRN PRN PRN Reason: Constipation Sertraline HCl (Zoloft) 100 mg PO DAILY [facility] Sodium Chloride (Flush - Normal Saline) 10 ml IVF Q12HR [facility] Last Admin: 10/26/17 08:42 Dose: 10 ml Sodium Chloride (Flush - Normal Saline) 10 ml IVF PRN PRN PRN Reason: Saline Flush Last Admin: 10/25/17 09:25 Dose: 10 ml
[2017-10-26] MEDS: Acetaminophen 325 MG TAB PO PRN (22:02)
[2017-10-27] MEDS: Levothyroxine Sodium 125 MCG TAB PO SCH (05:30)
[2017-10-27 05:31] LABS: INR-International Normal Ratio 1.3; PTT 36.3 SEC (22.9-36.1); Prothrombin Time 16.7 SEC (12.0-14.7)
[2017-10-27 06:19] LABS: Band 2 % (5-11); Hemoglobin 7.5 g/dL (12.0-16.0); Lymphocytes 13 % (21-51); MDiff Complete? YES; Mean Corpuscular Hemoglobin 28.5 pg (27.0-31.0); Mean Corpuscular Volume 91.9 fl (81.0-99.0); Monocytes 5 % (0-10); Neutrophil 80 % (42-75); PLT Morphology Comment Appears Adequate; Platelet Count 172 thou/uL (130-400); RBC Distribution Width 16.6 % (11.5-14.5); Red Blood Cell (RBC) Count 2.64 mill/uL (4.20-5.40); White Blood Cell (WBC) Count 12.2 thou/uL (4.8-10.8)
[2017-10-27] MEDS: Folic Acid 1 MG TAB PO SCH (08:52)
[2017-10-27] MEDS: Multivit, Therapeutic 1 TAB PO SCH (08:52)
[2017-10-27] MEDS: Calcium Carbonate + Vit D 1 TAB PO SCH ×2 (08:52→16:23)
[2017-10-27] MEDS: Nystatin Powder 15 GM BOT TOP SCH (08:56)
[2017-10-27] MEDS ORDERED: cefTRIAXone\\ROCEPHIN 1 GM, Syringe 0.4 ML in Sterile Water 9.6 ML SLOW IVP SCH (09:00)
[2017-10-27] MEDS ORDERED: Bupropion 150 MG XL TAB PO SCH (09:00)
[2017-10-27] MEDS: Acetaminophen 325 MG TAB PO PRN (09:14)
[2017-10-27] MEDS ORDERED: Vancomycin HCl 1 GM in Premix Bag 1 BAG IVPB SCH (09:15)
[2017-10-27] MEDS ORDERED: cefTRIAXone\\ROCEPHIN 1 GM in Sodium Chloride 0.9% 100 ML IVPB SCH (09:15)
[2017-10-27] MEDS: Vancomycin HCl 1.25 GM in Sodium Chloride 0.9% 250 ML 250 ML IVPB SCH (11:02)
--- NOTE | 2017-10-27 11:28 | RAD ---
KUB: INDICATIONS: History of abdominal pain and fever. FINDINGS: The bowel gas pattern is unobstructed. The are scattered vascular calcifications apparent. No suspi cious calcifications are evident. No acute osseous abnormality is noted. IMPRESSION: No acute abnormality. POS: [facility]
--- NOTE | 2017-10-27 11:32 | RAD ---
AP CHEST: Indication: Fever. Comparison: 10-25-17 FINDINGS: There is worsening opacities in the right upper lobe, right lower lobe, lingula and left lower lobe s uspicious for evolving multifocal pneumonia. No pleural effusion is evident. No acute osseous abnorma lity is evident. Mild cardiomegaly is stable. IMPRESSION: Worsening airspace disease suspicious for worsening multifocal pneumonia. POS: [facility]
[2017-10-27] MEDS ORDERED: Furosemide 40 MG/4 ML VIAL SLOW IVP SCH (13:30)
[2017-10-27] MEDS ORDERED: Nitroglycerin 0.4 MG TAB (25 Tab Bottle) PO PRN (13:44)
[2017-10-27] MEDS ORDERED: Cefepime 1 GM in Sodium Chloride 0.9% 100 ML IVPB SCH (14:00)
--- NOTE | 2017-10-27 15:01 | PDOC.PN ---
- Subjective Encounter Start Date: 10/27/17 Encounter Start Time: 13:00 -: non-verbal Patient seen and examined. More confused. Spont jerking of ext. fever per RN - Objective Resuscitation Status: Resuscitation Status DNR:Do Not Resuscitate MAR Reviewed: Yes Vital Signs & Weight: Vital Signs (12 hours) Temp Pulse Resp BP Pulse Ox 10/27/17 14:31 96 10/27/17 14:29 104 H 24 H 96 10/27/17 11:08 98.7 F 102 H 20 147/65 H 98 10/27/17 10:46 100 20 10/27/17 07:50 99.8 F H 106 H 22 H 136/75 95 10/27/17 07:42 99.8 F H 106 H 22 H 95 10/27/17 05:13 95 10/27/17 04:00 98.7 F 102 H 20 138/88 93 L Weight Admit Weight 233 lb 3 oz Weight 223 lb 1.6 oz I&O: 10/26/17 10/27/17 10/28/17 06:59 06:59 06:59 Intake Total 240 598 118 Output Total 1225 1200 Balance -985 -602 118 Result Diagrams: 10/27/17 04:12 10/26/17 04:18 Radiology Reviewed by me: Yes (CXR - Pneumonia, KUB - negative) EKG Reviewed by me: Yes (Tele SR) Phys Exam - Physical Examination Confused - not following verbal commands, Mild Resp distress Neck: no JVD Respiratory: no wheezing, no rhonchi Scat rales at bases, Dec AE at bases Cardiovascular: RRR, no rub no heaves/pulsation Gastrointestinal: soft, non-tender, no distention, positive bowel sounds Musculoskeletal: edema present (mainly in UE) Neurological: moves all 4 limbs (spont.) Neuro/Psych - Cannot assess due to current mentation Dx/Plan - Plan plan discussed w/ family (son), DVT proph w/SCDs IMPRESSION: 1. Toxic Metabolic Encephalopathy - multifactorial. prob due to Pneumonia ? Aspiration, r/o seizure 2. Anemia - prob due to chronic disease s/p PRBC 3. Swallow dys - on modified diet 4. Moderate PEM 5. HTN / HLD / Deconditioning / Recent UTI at [facility]/ Recent C diff at [facility] prior to [facility]/ Depression / Coagulopathy prob due to vit K def - improving / obesity BMI 34.9 / ?BRANDON 6. Other issues per H&P PLAN: * Vanc/Cefepime/Azithromycin started this afternoon after CXR * Consult Neuro for possible seizure * Cont low dose Zoloft * Wellbutrin on hold * Monitor HH * ID/GI following * s/p 1 units PRBC. * Cont modified diet * Cont Steroids * Monitor LFTs * Cont current meds as below * Strep Pneumonia/Legionella antigen pending * AM labs * Cont pulse ox * Cont nebs Review of Systems - Review of Systems Other: Cannot obtain due to current mentation - Medications/Allergies Allergies/Adverse Reactions: Allergies Allergy/AdvReac Type Severity Reaction Status Date / Time ciprofloxacin [From Cipro] Allergy Verified 10/23/17 23:04 colchicine Allergy Verified 10/23/17 23:04 levofloxacin [From Levaquin] Allergy Verified 10/23/17 23:04 Sulfa (Sulfonamide Allergy Verified 10/23/17 23:04 Antibiotics) Medications: Current Medications Acetaminophen (Tylenol) 650 mg PO Q6H PRN PRN Reason: Headache/Fever or Pain Last Admin: 10/27/17 09:14 Dose: 650 mg Albuterol/Ipratropium (Duoneb) 3 ml NEB [id number] Last Admin: 10/27/17 14:29 Dose: 3 ml Albuterol/Ipratropium (Duoneb) 3 ml NEB [id number] PRN PRN Reason: SOB &/or Wheezing Bisacodyl (Dulcolax) 10 mg PO DAILYPRN PRN PRN Reason: Constipation Calcium/Vitamin D (Caltrate 600 + Vit D) 1 tab PO BID-[facility] Last Admin: 10/27/17 08:52 Dose: 1 tab Folic Acid (Folvite) 1 mg PO DAILY [facility] Last Admin: 10/27/17 08:52 Dose: 1 mg Furosemide (Lasix) 40 mg SLOW IVP NOW [facility] Stop: 10/27/17 15:30 Vancomycin HCl 1.25 gm/ Sodium (Chloride) 250 mls @ 166.667 mls/hr IVPB 1000 [facility] Last Admin: 10/27/17 11:02 Dose: 250 mls Azithromycin 500 mg/ Sodium (Chloride) 250 mls @ 250 mls/hr IVPB Q24HR [facility] Cefepime HCl 1 gm/Miscellaneous Medication 1 each/ Sodium Chloride 10 mls @ 120 mls/hr SLOW IVP Q8HR [facility] Levothyroxine Sodium (Synthroid) 125 mcg PO 0600 [facility] Last Admin: 10/27/17 05:30 Dose: 125 mcg Methylprednisolone Sodium Succinate (Solu-Medrol) 40 mg IVP DAILY [facility] Last Admin: 10/27/17 08:55 Dose: 40 mg Miscellaneous Medication (Pharmacy To Dose) 0 each IVPB ASDIR PRN PRN Reason: Pharmacy to Dose VANCOMYCIN Miscellaneous Medication (Pharmacy To Dose) 1 each IVPB ONE PRN PRN Reason: Pharmacy to dose Multivitamins (Theragran) 1 tab PO DAILY [facility] Last Admin: 10/27/17 08:52 Dose: 1 tab Nitroglycerin (Nitrostat) 0.4 mg PO Q5MIN PRN PRN Reason: Chest Pain Nystatin (Mycostatin Powder) 0 gm TOP BID [facility] Last Admin: 10/27/17 08:56 Dose: 1 applic Pantoprazole Sodium (Protonix) 40 mg PO BID [facility] Last Admin: 10/27/17 08:52 Dose: 40 mg Saccharomyces Boulardii (Florastor) 250 mg PO DAILY [facility] Senna (Senokot) 2 tab PO HSPRN PRN PRN Reason: Constipation Sertraline HCl (Zoloft) 50 mg PO DAILY [facility] Sodium Chloride (Flush - Normal Saline) 10 ml IVF Q12HR [facility] Last Admin: 10/27/17 08:56 Dose: 10 ml Sodium Chloride (Flush - Normal Saline) 10 ml IVF PRN PRN PRN Reason: Saline Flush Last Admin: 10/25/17 09:25 Dose: 10 ml
[2017-10-27] MEDS: Cefepime 1 GM, Admixture Fee 1 EACH in Sodium Chloride 0.9% 10 ML SLOW IVP SCH ×2 (15:13→22:30)
[2017-10-27] MEDS: Azithromycin 500 MG in Sodium Chloride 0.9% 250 ML 250 ML IVPB SCH (15:13)
[2017-10-27] MEDS: Fentanyl 100 MCG/2 ML VIAL SLOW IVP PRN ×2 (16:07→22:30)
--- NOTE | 2017-10-27 16:33 | PRG ---
DATE OF SERVICE: 10/27/2017 SUBJECTIVE: The patient is unable to respond to questions. She is writhing around yelling. OBJECTIVE: VITAL SIGNS: Temperature is 99.6, pulse 102, respiratory rate 27, blood pressure 149/126. CHEST: Clear. CARDIOVASCULAR: Regular rate and rhythm. ABDOMEN: Soft, nontender. LABORATORY DATA: Shows a white blood cell count of 12.2, hemoglobin 7.5, hematocrit 24.2. PT is 16. 7 with an INR of 1.3. Chemistries show a magnesium 1.9. Abdominal x-ray showed no acute process. C hest x-ray shows worsening pneumonia. ASSESSMENT: 1. Anemia - suspect chronic disease. 2. Elevated liver enzymes. 3. Altered mental status - worsening. 4. Pneumonia. RECOMMENDATIONS: 1. Repeat LFTs. 2. Continue to follow H and H. 3. Continue proton pump inhibitor. 4. Dr. Rebekah melogza.
--- NOTE | 2017-10-28 04:02 | CON ---
DATE OF CONSULTATION: 10/27/2017 HISTORY: Ms. Chu is a 77-year-old female who [facility]. She has hypertension, liver di sorder, history of malignant melanoma. She is transferred in the Intermediate Care Unit because of an encephalopathy. I was consulted kina leo of her presence in the IMU. She has multiple specialists seen her. PAST MEDICAL HISTORY: Remarkable for: 1. Hypertension. 2. Liver disorder. 3. History of subarachnoid bleed that did not require surgery. 4. History of recent urinary tract infection. 5. History of hypothyroidism. 6. History of depression. 7. History of deconditioning and falls. 8. History of gout. 9. History of rheumatoid arthritis. PAST SURGICAL HISTORY: 1. History of hysterectomy. 2. Status post tonsillectomy. 3. History of appendectomy. SOCIAL HISTORY: She is nonsmoker, nondrinker. She does not use drugs, never has. FAMILY HISTORY: She has no reported history of lung disease in early age in her family history. ALLERGIES: Reports intolerance to SULFA and LEVAQUIN. MEDICATIONS: Have been reviewed. REVIEW OF SYSTEMS: Not obtainable. PHYSICAL EXAMINATION: GENERAL: She is agitated, encephalopathic. She is unable to answer questions. VITAL SIGNS: She is afebrile, heart rate in the 90s, respiratory rate in the 20s. Oximetry is 99 on 2 liters, blood pressure 165/82. HEENT: Pupils are equal. Sclerae is anicteric. NECK: Supple. LUNGS: Remarkable for mild rhonchi bilaterally. HEART: Regular rhythm, no S3. ABDOMEN: Soft and nontender. No mass or organomegaly. EXTREMITIES: No clubbing, cyanosis, or edema. She moves all 4 extremities equally neurologically. LABORATORY DATA: White count is 12.2, hemoglobin 7.5, platelets 172,000. Sodium 145, potassium 3.3, chloride 111, bic arbonate 26, BUN 51, creatinine 1.9, creatinine 2 days ago was 1.93. Blood gas on the 7.43, CO2 of 38, pO2 of 37, but this was a venous blood gas. Analysis was unremarkable on admission. Microbi ology showed no urinary growth. No blood culture growth. Calcium is normal. Liver enzymes are mild ly elevated. IMPRESSION: 1. Encephalopathy of unclear etiology. From cardiac and pulmonary standpoint at this point in time she is stable, although she is certainly at risk for having issues with secretions, if she continues to be encephalopathic. 2. Chest radiograph from 10/25/2017, was reviewed and suggestive of pneumonia, encephalopathy, certa inly could be just result of this. 3. Infectious disease is following the patient and she is currently on broad antimicrobial therapy. I will follow with the other physicians caring for her. This is a 50-minute consult, greater than 50% of care was spent in coordinating care.
[2017-10-28 04:21] LABS: Legionella Urinary Ag Negative (Negative); Strep pneumo Urine Ag NEGATIVE (NEGATIVE)
[2017-10-28] MEDS: Nystatin Powder 15 GM BOT TOP SCH ×2 (04:24→09:49)
[2017-10-28 04:47] LABS: #Lymphocytes 1.5 thou/uL (1.20-3.40); #Monocytes 0.6 thou/uL (0.11-0.59); %Basophils 0.1 % (0.0-1.0); %Eosinophils 0.1 % (0.0-10.0); %Lymphocytes 10.7 % (21.0-51.0); %Neutrophils 85.2 % (42.0-75.0); Hemoglobin 8.1 g/dL (12.0-16.0); Mean Corpuscular HGB CONC 31.1 g/dL (32.0-36.0); Mean Corpuscular Hemoglobin 27.8 pg (27.0-31.0); Mean Corpuscular Volume 89.3 fl (81.0-99.0); Mean Platelet Volume 8.7 fL (7.4-10.4); Platelet Count 173 thou/uL (130-400); RBC Distribution Width 16.3 % (11.5-14.5); Red Blood Cell (RBC) Count 2.93 mill/uL (4.20-5.40); White Blood Cell (WBC) Count 14.1 thou/uL (4.8-10.8)
[2017-10-28 04:53] LABS: ALT (SGPT) 59 U/L (8-55); AST (SGOT) 64 U/L (5-34); Albumin 2.5 g/dL (3.4-4.8); Alkaline Phosphatase 146 U/L (40-150); Anion Gap 13 mmol/L (10-20); BUN (Urea Nitrogen) 45 mg/dL (9.8-20.1); Bilirubin, Total 0.4 mg/dL (0.2-1.2); Calc. Creatinine Clearance 41 mL/min (70-130); Calcium 8.5 mg/dL (7.8-10.44); Carbon Dioxide 29 mmol/L (23-31); Chloride 111 mmol/L (98-107); Estimated GFR-MDRD 26; Globulin 3.5 g/dL (2.4-3.5); Glucose 79 mg/dL (83-110); Magnesium 1.5 mg/dL (1.6-2.6); Potassium 3.1 mmol/L (3.5-5.1); Sodium 150 mmol/L (136-145)
[2017-10-28 04:54] LABS: ALT (SGPT) 59 U/L (8-55); AST (SGOT) 65 U/L (5-34); Albumin 2.5 g/dL (3.4-4.8); Alkaline Phosphatase 149 U/L (40-150); Bilirubin, Direct 0.3 mg/dL (0.1-0.3); Bilirubin, Total 0.4 mg/dL (0.2-1.2)
[2017-10-28 04:58] LABS: INR-International Normal Ratio 1.4; PTT 33.3 SEC (22.9-36.1)
[2017-10-28] MEDS: Cefepime 1 GM, Admixture Fee 1 EACH in Sodium Chloride 0.9% 10 ML SLOW IVP SCH ×3 (05:59→22:34)
[2017-10-28] MEDS: Levothyroxine Sodium 125 MCG TAB PO SCH (06:00)
--- NOTE | 2017-10-28 09:18 | PRG ---
DATE OF SERVICE: 10/28/2017 SUBJECTIVE: Ms. Chu has become more agitated and moaning and groaning as if she was in pain. She a lso became tachycardic and was concerned for sepsis, and repeat chest x-ray showed persistence of the infiltrates. She was restarted on broad-spectrum coverage and transferred to the [facility]. Right now, she is very agitated and complaining of pain. She cannot interact with the examiner in a meaningful fashion. IV access has been reestablished in left upper extremity. She has had no diarrhea. No ritu dence of aspiration. OBJECTIVE: VITAL SIGNS: T-max 99.8, current 99.6; blood pressure 160/100; pulse 107; respirations 26; O2 sat 91 %. SKIN EXAM: With areas of pressure ulceration in the back. GENERAL: She is awake, but she has had labored breathing and she keeps moaning and groaning as if sh e is in pain. EYES: Ocular movements are conjugate. LUNGS: With symmetric air entry. HEART: S1 and S2, regular rate. EXTREMITIES: The areas of inflammation in the distal upper extremities. She has a Moreno catheter in place. LABORATORY DATA: The white cell count 12.2, hemoglobin 7.5, platelets 172, 80% neutrophils. Sodium 145, creatinine 1.9, magnesium 1.9, AST 113, ALT 89, albumin 2.3. Chest x-ray with diffuse bilateral multifocal infiltrates, possible multifocal pneumonia. ASSESSMENT: Polyarticular gout, hypertension, cognitive dysfunction and delirium, congestive changes versus multifocal pneumonia. DISCUSSION: The patient has been restarted on antimicrobial therapy with a regimen covering health-a cquired pneumonia. She is on steroids. Pulmonary Medicine has been consulted. The patient will nee d probably midline or PICC line insertion.
[2017-10-28] MEDS: Fentanyl 100 MCG/2 ML VIAL SLOW IVP PRN (09:48)
[2017-10-28] MEDS: Vancomycin HCl 1.25 GM in Sodium Chloride 0.9% 250 ML 250 ML IVPB SCH (09:49)
[2017-10-28] MEDS: Calcium Carbonate + Vit D 1 TAB PO SCH ×2 (10:39→16:49)
[2017-10-28] MEDS: Folic Acid 1 MG TAB PO SCH (10:39)
[2017-10-28] MEDS: Multivit, Therapeutic 1 TAB PO SCH (10:39)
[2017-10-28] MEDS: Saccharomyces boulardii 250 MG CAP PO SCH (10:40)
[2017-10-28] MEDS ORDERED: Magnesium 2 GM/NS 0.9% 100 ML 2 GM in Premix Bag 1 BAG IVPB SCH (11:45)
[2017-10-28] MEDS ORDERED: Acetaminophen 1,000 MG in Premix Bag 1 BAG IVPB SCH (11:45)
[2017-10-28 13:18] LABS: Mitochondrial (M2) Antibody SO 13.6 Units (0.0-20.0); Smooth Muscle Total ABS 19 Units (0-19)
[2017-10-28] MEDS: D5 1/2 NS w/20 mEq KCL 1,000 ML IV SCH (13:23)
[2017-10-28] MEDS: Azithromycin 500 MG in Sodium Chloride 0.9% 250 ML 250 ML IVPB SCH (13:25)
[2017-10-28 13:44] LABS: ANA Symphony (Qualitative) POSITIVE (Negative); CENP IgG Antibody 0.5 EliAU/mL (<7 Negative); Jo-1 IgG Antibody 0.3 EliAU/mL (<7 Negative); RNP70 IgG Antibody 0.4 EliAU/mL (<7 Negative); SSA/Ro IgG Antibody 0.4 EliAU/mL (<7 Negative); SSB/La IgG Antibody 0.4 EliAU/mL (<7 Negative); Scleroderma-70 IgG Antibody 0.8 EliAU/mL (<7 Negative); Smith D IgG Antibody 1.2 EliAU/mL (<7 Negative); U1RNP IgG Antibody 1.1 EliAU/mL (<5 Negative); dsDNA IgG Antibody 2.1 IU/mL (<10 Negative)
--- NOTE | 2017-10-28 18:40 | PDOC.PN ---
- Subjective Encounter Start Date: 10/28/17 Encounter Start Time: 14:00 -: non-verbal Patient seen and examined. confused +, Moaning. No overnight events - Objective Resuscitation Status: Resuscitation Status DNR:Do Not Resuscitate MAR Reviewed: Yes Vital Signs & Weight: Vital Signs (12 hours) Temp Pulse Resp BP Pulse Ox 10/28/17 13:54 106 H 24 H 96 10/28/17 11:25 100.6 F H 108 H 29 H 146/85 H 94 L 10/28/17 10:40 104 H 23 H 97 10/28/17 07:58 99.7 F H 107 H 26 H 91 L 10/28/17 07:14 99.7 F H 107 H 26 H 169/104 H 91 L 10/28/17 07:07 108 H 22 H 93 L Weight Admit Weight 233 lb 3 oz Weight 214 lb 1 oz I&O: 10/27/17 10/28/17 10/29/17 06:59 06:59 06:59 Intake Total 598 438 Output Total 1200 2350 550 Balance -602 -1912 -550 Result Diagrams: 10/28/17 03:59 10/28/17 03:59 EKG Reviewed by me: Yes (Tele SR) Phys Exam - Physical Examination Pt is confused/moaning Respiratory: no wheezing Bibasilar rales/rhonchi, Symmetrical Cardiovascular: RRR, no rub no heaves/pulsations Gastrointestinal: soft, non-tender, no distention, positive bowel sounds Musculoskeletal: no edema Neuro/Psych - Cannot assess due to current cognition/confusion Dx/Plan - Plan continue antibiotics, respiratory therapy, DVT proph w/SCDs (no Lovenox due to anemia) IMPRESSION: 1. Toxic Metabolic Encephalopathy - multifactorial. prob due to Pneumonia ? Aspiration - fail to change 2. Anemia - prob due to chronic disease s/p PRBC 3. Swallow dys - on modified diet 4. Moderate PEM 5. HTN / HLD / Deconditioning / Recent UTI at [facility]/ Recent C diff at [facility] to [facility]/ Depression / Coagulopathy prob due to vit K def - improving / obesity BMI 34.9 / ?BRANDON 6. Other issues per H&P PLAN: * Cont Vanc/Cefepime/Azithromycin * Neuro/ID/GI/Critical care following * Zoloft/Wellbutrin on hold due to possible Serotonin syndrome per Neuro * Start gentle IVF due to confusion * Cont Steroids * Cont current meds as below * AM labs Laboratory Tests 10/26/17 10/26/17 10/27/17 04:18 04:18 23:20 PT INR Magnesium MEAGAN Screen POSITIVE H MEAGAN IgG Screen POSITIVE H AMANDA-1 IgG Antibody 0.3 SS-A/Ro IgG Antibody 0.4 SS-B/La IgG Antibody 0.4 Mitochondria M2 Ab 13.6 Smooth Muscle Ab Titer 19 Ur L.pneumophila Ag Negative Ur Strep pneumoniae Ag 10/27/17 10/28/17 10/28/17 23:20 03:59 03:59 PT 17.0 H INR 1.4 Magnesium 1.5 L MEAGAN Screen MEAGAN IgG Screen AMANDA-1 IgG Antibody SS-A/Ro IgG Antibody SS-B/La IgG Antibody Mitochondria M2 Ab Smooth Muscle Ab Titer Ur L.pneumophila Ag Ur Strep pneumoniae Ag NEGATIVE Review of Systems - Review of Systems Other: Cannot obtain due to current mentation - Medications/Allergies Allergies/Adverse Reactions: Allergies Allergy/AdvReac Type Severity Reaction Status Date / Time ciprofloxacin [From Cipro] Allergy Verified 10/23/17 23:04 colchicine Allergy Verified 10/23/17 23:04 levofloxacin [From Levaquin] Allergy Verified 10/23/17 23:04 Sulfa (Sulfonamide Allergy Verified 10/23/17 23:04 Antibiotics) Medications: Current Medications Acetaminophen (Tylenol) 650 mg PO Q6H PRN PRN Reason: Headache/Fever or Pain Last Admin: 10/27/17 09:14 Dose: 650 mg Albuterol/Ipratropium (Duoneb) 3 ml NEB [id number] [facility] Last Admin: 10/28/17 18:38 Dose: 3 ml Albuterol/Ipratropium (Duoneb) 3 ml NEB [id number] PRN PRN Reason: SOB &/or Wheezing Bisacodyl (Dulcolax) 10 mg PO DAILYPRN PRN PRN Reason: Constipation Calcium/Vitamin D (Caltrate 600 + Vit D) 1 tab PO BID-[facility] Last Admin: 10/28/17 16:49 Dose: Not Given Fentanyl (Sublimaze) 25 mcg SLOW IVP Q4H PRN PRN Reason: Severe Pain (7-10) Last Admin: 10/28/17 09:48 Dose: 25 mcg Folic Acid (Folvite) 1 mg PO DAILY [facility] Last Admin: 10/28/17 10:39 Dose: Not Given Vancomycin HCl 1.25 gm/ Sodium (Chloride) 250 mls @ 166.667 mls/hr IVPB 1000 [facility] Last Admin: 10/28/17 09:49 Dose: 250 mls Azithromycin 500 mg/ Sodium (Chloride) 250 mls @ 250 mls/hr IVPB Q24HR [facility] Last Admin: 10/28/17 13:25 Dose: 250 mls Cefepime HCl 1 gm/Miscellaneous Medication 1 each/ Sodium Chloride 10 mls @ 120 mls/hr SLOW IVP Q8HR [facility] Last Admin: 10/28/17 15:40 Dose: 10 mls Potassium Chloride/Dextrose/Sod Cl (D5 1/2 Ns W/20 Meq Kcl) 1,000 mls @ 50 mls/ hr IV .Q20H [facility] Last Admin: 10/28/17 13:23 Dose: 1,000 mls Levothyroxine Sodium (Synthroid) 125 mcg PO 0600 [facility] Last Admin: 10/28/17 06:00 Dose: Not Given Methylprednisolone Sodium Succinate (Solu-Medrol) 40 mg IVP DAILY [facility] Last Admin: 10/28/17 09:47 Dose: 40 mg Miscellaneous Medication (Pharmacy To Dose) 0 each IVPB ASDIR PRN PRN Reason: Pharmacy to Dose VANCOMYCIN Multivitamins (Theragran) 1 tab PO DAILY [facility] Last Admin: 10/28/17 10:39 Dose: Not Given Nitroglycerin (Nitrostat) 0.4 mg PO Q5MIN PRN PRN Reason: Chest Pain Nystatin (Mycostatin Powder) 0 gm TOP BID [facility] Last Admin: 10/28/17 09:49 Dose: 1 applic Pantoprazole Sodium (Protonix) 40 mg PO BID [facility] Last Admin: 10/28/17 10:40 Dose: Not Given Saccharomyces Boulardii (Florastor) 250 mg PO DAILY [facility] Last Admin: 10/28/17 10:40 Dose: Not Given Senna (Senokot) 2 tab PO HSPRN PRN PRN Reason: Constipation Sodium Chloride (Flush - Normal Saline) 10 ml IVF Q12HR [facility] Last Admin: 10/28/17 09:49 Dose: 10 ml Sodium Chloride (Flush - Normal Saline) 10 ml IVF PRN PRN PRN Reason: Saline Flush Last Admin: 10/28/17 06:00 Dose: 10 ml
--- NOTE | 2017-10-28 18:50 | PRG ---
DATE OF SERVICE: 10/28/2017 SUBJECTIVE: Elaine Chu still encephalopathic, but she is better than she was last night. OBJECTIVE: VITAL SIGNS: Temperature 100.6, heart rate 78, respiratory rate 20, oximetry is 94 on 3 liters, bloo d pressure 146/85. LUNGS: Remarkable for mild rhonchi. She appears to be handling his secretions adequately. HEART: Regular rhythm. ABDOMEN: Soft and nontender. EXTREMITIES: Still remarkable for gouty tophi everywhere. Echocardiogram was done today shows normal ejection fraction, but diastolic dysfunction. IMPRESSION: 1. Pneumonia with encephalopathy. 2. Gout with multiple arthritic changes related to her gout. 3. Diastolic dysfunction. She will need to remain in the intermediate care unit. She appears to be adequately handling her sec retions, has no exam findings suggestive of respiratory muscle fatigue. Her prognosis is quite guard ed. There is no family at the bedside.
[2017-10-28] MEDS: Pantoprazole 40 MG VIAL IVP SCH (20:47)
[2017-10-29] MEDS: Fentanyl 100 MCG/2 ML VIAL SLOW IVP PRN (00:11)
[2017-10-29] MEDS: Nystatin Powder 15 GM BOT TOP SCH ×2 (01:46→08:51)
[2017-10-29] MEDS ORDERED: Acetaminophen 650 MG Suppository PR PRN (04:00)
[2017-10-29 04:58] LABS: #Lymphocytes 1.8 thou/uL (1.20-3.40); #Monocytes 0.5 thou/uL (0.11-0.59); #Neutrophils 12.6 thou/uL (1.40-6.50); %Basophils 0.1 % (0.0-1.0); %Lymphocytes 11.9 % (21.0-51.0); %Monocytes 3.3 % (0.0-10.0); %Neutrophils 84.7 % (42.0-75.0); Hemoglobin 8.2 g/dL (12.0-16.0); Mean Corpuscular Hemoglobin 27.8 pg (27.0-31.0); Mean Corpuscular Volume 89.8 fl (81.0-99.0); Mean Platelet Volume 8.9 fL (7.4-10.4); Platelet Count 173 thou/uL (130-400); RBC Distribution Width 16.4 % (11.5-14.5); Red Blood Cell (RBC) Count 2.94 mill/uL (4.20-5.40); White Blood Cell (WBC) Count 14.9 thou/uL (4.8-10.8)
[2017-10-29 05:02] LABS: Albumin 2.5 g/dL (3.4-4.8); Anion Gap 12 mmol/L (10-20); BUN (Urea Nitrogen) 42 mg/dL (9.8-20.1); BUN/Creatinine Ratio 21.21; Calc. Creatinine Clearance 37 mL/min (70-130); Calcium 8.4 mg/dL (7.8-10.44); Carbon Dioxide 28 mmol/L (23-31); Chloride 115 mmol/L (98-107); Estimated GFR-MDRD 25; Glucose 113 mg/dL (83-110); Magnesium 1.9 mg/dL (1.6-2.6); Phosphorus 2.4 mg/dL (2.3-4.7); Potassium 3.3 mmol/L (3.5-5.1); Sodium 152 mmol/L (136-145)
[2017-10-29] MEDS: Cefepime 1 GM, Admixture Fee 1 EACH in Sodium Chloride 0.9% 10 ML SLOW IVP SCH ×3 (05:37→22:39)
[2017-10-29] MEDS: Levothyroxine Sodium 125 MCG TAB PO SCH (05:43)
[2017-10-29] MEDS: Calcium Carbonate + Vit D 1 TAB PO SCH ×2 (07:44→17:16)
[2017-10-29] MEDS: Saccharomyces boulardii 250 MG CAP PO SCH (07:44)
[2017-10-29] MEDS: Folic Acid 1 MG TAB PO SCH (07:44)
[2017-10-29] MEDS: Multivit, Therapeutic 1 TAB PO SCH (07:44)
[2017-10-29] MEDS ORDERED: Potassium Chloride 20 MEQ/100 ML PREMIX BAG IVPB SCH (07:45)
--- NOTE | 2017-10-29 07:48 | PRG ---
DATE OF SERVICE: 10/28/2017 Ms. Chu is in the [facility]. She is awake, establishes eye contact, but cannot properly interact with th e examiner, mumbling repetitive sounds to every question. She does not follow commands. No reported vomiting, no respiratory distress, moaning and groaning that had been experiencing yesterday seems t o be better controlled with analgesia. She has had some diarrhea noted. PHYSICAL EXAMINATION: VITAL SIGNS: T-max 100.6, blood pressure 109/88, pulse 110, respirations 20-28, O2 sat 92-95%. GENERAL: Appears in some distress, but not as much as yesterday. HEENT: Ocular movements are conjugate. LUNGS: Lungs with scattered lung sounds with crackles, particularly at the bases. HEART: S1, S2, irregular rate. ABDOMEN: Soft, not distended. 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 : She has a Moreno catheter with good output. I's and O's are negative. White cell count 14.9, hemoglobin 8.2, platelets 173 and a sodium 132, creatinine is little bit up to 1.98. The legionella haemophilus strep pneumonia antigen were negative. The MEAGAN was positive, but that is nonspecific positivity, all the oral antibodies specificities are negative. I took a sample off of her finger from one of those are accumulations of white substance and put in a covers slip and looked under the microscope and there was abundant needle shaped uric acid crystals and little WBCs. The patient had an echocardiogram, which was unremarkable except for diastolic dysfunction and the la st chest x-ray is from two days ago, 1 day ago which showed worsening airspace disease, likely multif ocal pneumonia. ASSESSMENT AND DISCUSSION: Polyarticular gout, hypertension, cognitive dysfunction, delirium and lik carlos multifocal pneumonia on broad spectrum antimicrobial therapy. She is also on steroids with appar ent improvement of the polyarticular gout. The other possibilities would be other forms of not infec tious pneumonitis and CHF, but that appears less likely. Pulmonary hemorrhage also appears less like ly.
[2017-10-29] MEDS ORDERED: Potassium Chloride 20 MEQ in Premix Bag 1 BAG IVPB SCH (08:30)
[2017-10-29] MEDS: Pantoprazole 40 MG VIAL IVP SCH ×2 (08:53→20:05)
[2017-10-29] MEDS: Vancomycin HCl 1.25 GM in Sodium Chloride 0.9% 250 ML 250 ML IVPB SCH (08:53)
[2017-10-29 09:32] LABS: Vancomycin, Trough 34.8 ug/mL
[2017-10-29] MEDS: D5 1/2 NS w/20 mEq KCL 1,000 ML IV SCH (12:19)
[2017-10-29] MEDS ORDERED: Lorazepam 2 MG/ML VIAL SLOW IVP PRN (12:48)
[2017-10-29] MEDS: Azithromycin 500 MG in Sodium Chloride 0.9% 250 ML 250 ML IVPB SCH (14:46)
--- NOTE | 2017-10-29 14:51 | CON ---
DATE OF CONSULTATION: 10/27/2017 REFERRING PROVIDER: Dr. Andre Cole. REASON FOR CONSULTATION: Altered mental status. HISTORY OF PRESENT ILLNESS: Ms. Chu is a pleasant 77-year-old female who has been concern ed for evaluation of altered mental status. History is very limited as the patient is unable to prov jonathan and there are no from family were present at bedside. Apparently, the patient had presented on 0 10/23/2017 with a complaint of altered mental status. At that time, the patient's son had reported th at 5 weeks ago, the patient was living independently at home; however, after a fall, she was admitted at [facility] where she was diagnosed with C. diff and cellulitis of both lower extremities. She was t ransferred to rehabilitation post-discharge and transferred back to [facility] for parra ges in mentation. She was found to have urinary tract infection. She was treated with UTI and trans ferred back to the rehab facility. However, she again got up very confused and altered, which prompt ed them to bring her to the [facility]. According to the nurse, the patient continues to remain confused and agitated. She is also having increasing episodes of jerking and twitching of both arms and legs. She does not communicate and she tends to moan frequently. She is also noted t o have very sensitive to touch in both upper extremities as she is having swelling in both hands and her joints are tender to palpation. PAST MEDICAL HISTORY: Could not be obtained. PAST SURGICAL HISTORY: Could not be obtained. SOCIAL HISTORY: Could not be obtained. FAMILY HISTORY: Could not be obtained. CURRENT MEDICATIONS: Please review MAR. ALLERGIES: Include CIPROFLOXACIN, COLCHICINE, LEVOFLOXACIN and SULFA DRUGS. REVIEW OF SYSTEMS: Unable to perform. PHYSICAL EXAMINATION: VITAL SIGNS: Blood pressure 149/126, pulse of 102, temperature of 99.6, respirations of 27, O2 sats 97% on 2 liter nasal cannula. GENERAL: Obtunded female somewhat uncomfortable with the pain in her joints. She is grima cing throughout the examination. RESPIRATORY: Clear to auscultation bilaterally. CARDIOVASCULAR: Regular rate and rhythm. NEUROLOGIC: Mental status: The patient is obtunded. She responds to verbal stimuli by opening her eyes, but does not follow any commands. She withdraws to pain in both upper and lower extremities. She is having constant jerking of her upper and lower extremities, which is more of myoclonic type je rking. Cranial nerves: Pupils are 4-5 mm and reactive bilaterally. She is able to track me in the room. Does not follow any commands. She does blink to threat on both sides. Motor exam showed incr eased tone of both upper and lower extremities. She moves both upper and lower extremities spontaneo usly. LABORATORY DATA: Reviewed which included CBC and CMP which is significant for hemoglobin 7.5, hemato crit of 24.2, potassium of 3.3, AST of 113, ALT of 89, otherwise unremarkable. IMAGING STUDIES: CT head without contrast done on 10/23/2017 was reviewed which showed no acute intr acranial abnormality. IMPRESSION: Altered mental status, likely toxic metabolic encephalopathy versus serotonin syndrome. Ms. Chu is a 77-year-old female who presented with the changes in mentation that has been fluctuating over the past couple of weeks. She is noted to be tachycardic, hypertensive, and jerkin g all over and moaning in pain. I am minimal concerned that she may have underlying serotonin syndro me as the cause for her changes in mentation. Since she is already taking trazodone, bupropion and Z oloft at high doses, this may be the contributing factors. I would recommend taking her off of those medications, IV hydration along with close monitoring of her neurological function. If she continue s to have the spells, we may obtain EEG to rule out seizures although I do not suspect that she is owens ving any subclinical seizures, continue close monitoring. Thank you for consultation.
--- NOTE | 2017-10-29 15:15 | PRG ---
DATE OF SERVICE: 10/29/2017 SUBJECTIVE: Ms. Chu continues to be confused and disoriented. She also continues to have continuou s episodes of jerking of her upper and lower extremities. She continues to be tachycardic and hypert ensive. She had an EEG done yesterday, which was of poor quality due to continuous jerking motion; h owever, did not show any epileptiform discharges or abnormal sharp transient wave that would suggest electrographic seizures or seizure disorder. According to the nurse, who is taking care of the patie nt, she did receive 2 mg of Ativan a few minutes before my walking in to see her and from that she owens s been very drowsy and sleepy and has a sensation of these jerking episodes. PHYSICAL EXAMINATION: VITAL SIGNS: Her blood pressure of 182/66, pulse of 107, temperature of 98.5, respirations of 20, O2 sats of 96% on 2 liters nasal cannula. GENERAL: Obtunded female, resting, and in no apparent distress. RESPIRATORY: Clear to auscultation bilaterally. CARDIOVASCULAR: Regular rate and rhythm. NEUROLOGICAL: Mental status: The patient is obtunded. She does not respond to verbal stimuli. She does grimace to noxious stimuli, but falls back asleep within a second. Cranial nerves: Pupils are 5 mm and reactive bilaterally. Face appears symmetric. Motor exam showed increased tone and rigidi ty of both upper and lower extremities. She withdraws to pain in both upper and lower extremities. LABORATORY DATA: Reviewed, which included CBC and CMP, which is significant for white cell count of 14.9, hemoglobin 8.2, hematocrit of 26.4, platelet count of 173; sodium of 152, potassium of 3.3, BUN of 42, creatinine of 1.98. AST of 65, ALT of 59, otherwise unremarkable. IMPRESSION: Altered mental status, likely toxic metabolic encephalopathy versus serotonin syndrome. Ms. Chu is a pleasant 77-year-old female, who presented with the changes in mentation. I have reviewed her EEG, which did not show any epileptiform discharges or sharp transients with symme try. Her EEG showed [id number] nonspecific cerebral dysfunction, which would correlate with un derlying encephalopathy. I am concerned that she is likely in a serotonin syndrome. I would recomme nd discontinuing all serotonergic medications. I would recommend putting her on Ativan 1 mg q.4 hour s p.r.n. Continue current medical management. Thank you for consultation.
[2017-10-29 15:30] LABS: A1 Antitrypsin Phenotype Inter MS (.); Alpha-1-Antitrypsin 201 mg/dL (90-200)
[2017-10-29] MEDS: Lorazepam 2 MG/ML VIAL SLOW IVP PRN ×3 (16:20→22:50)
--- NOTE | 2017-10-29 16:33 | PRG ---
DATE OF SERVICE: 10/29/2017 SERVICE: Pulmonary Medicine. INTERVAL HISTORY: The patient is doing fine from a respiratory standpoint. She is developing increa sing rigidity and choreoathetoid movements. She has pronounced mydriasis. Otherwise, she cannot pro vide me with any additional elements of the history. She got a dose of Ativan yesterday and she seem ed to calm down a little bit, but she had recurrence of her symptoms. She cannot provide any history , whatsoever. PHYSICAL EXAMINATION: VITAL SIGNS: Afebrile, pulse 107, blood pressure 182/66, respirations 20 and saturation 96% on 3 lit ers nasal cannula. GENERAL: The patient is awake, but not alert. HEENT: Normocephalic and atraumatic. Sclerae are white, conjunctivae pink. Oral and nasal mucosa i s moist without lesions. LUNGS: Decent air entry. There is no prolonged expiratory phase or wheezing present. HEART: Normal rate and regular. ABDOMEN: Soft, nontender and nondistended. Bowel sounds positive. MUSCULOSKELETAL: No cyanosis or clubbing. There is no pitting in the bilateral lower extremities. NEUROLOGIC: She has choreoathetoid movements and seems to have a little bit of rigidity. There is f airly significant agitation. Mydriasis is present bilaterally. That being said, her pupils are a li ttle bit responsive. LABORATORY DATA: WBC 14.9, hemoglobin 8.2 and platelets 173. INR 1.4. Creatinine is stable at 1.98 . Sodium 152 and potassium 3.3. Vancomycin trough is 35. MEAGAN screen is abnormal. Hepatitis serolo gies are unremarkable. Urine culture and blood cultures x4 are negative. ASSESSMENT: 1. Acute hypoxic respiratory failure. 2. Healthcare-associated pneumonia. 3. Chronic diastolic heart failure. 4. Serotonin syndrome. PLAN: I will give the patient antidote. We will continue p.r.n. doses of Ativan moving forward. Ho pefully, her mentation will clear up once these serotonergic medications are out of her system for a period of time. Pulmonary Critical Care will continue to follow.
[2017-10-29] MEDS: Dextrose 5% in Water 1,000 ML IV SCH (17:19)
[2017-10-29 21:21] LABS: Vancomycin, Random 34.2 ug/mL (See Comment)
--- NOTE | 2017-10-29 23:21 | PDOC.PN ---
- Subjective Encounter Start Date: 10/29/17 Encounter Start Time: 15:00 -: non-verbal Patient seen and examined. Remained confused with moaning - Objective Resuscitation Status: Resuscitation Status DNR:Do Not Resuscitate MAR Reviewed: Yes Vital Signs & Weight: Vital Signs (12 hours) Temp Pulse Resp BP Pulse Ox 10/29/17 22:23 96 24 H 92 L 10/29/17 20:00 99.6 F 102 H 22 H 98 10/29/17 19:40 176/66 H 10/29/17 19:37 99.6 F 102 H 22 H 186/85 H 98 10/29/17 18:38 104 H 24 H 92 L 10/29/17 16:02 112 H 36 H 90 L 10/29/17 16:00 98.6 F 103 H 18 92 L 10/29/17 13:31 97 20 98 Weight Admit Weight 233 lb 3 oz Weight 212 lb 8 oz I&O: 10/28/17 10/29/17 10/30/17 06:59 06:59 06:59 Intake Total 438 1492 900 Output Total 2350 950 700 Balance -1912 542 200 Result Diagrams: 10/29/17 04:24 10/30/17 03:29 EKG Reviewed by me: Yes (Tele SR) Phys Exam - Physical Examination Pt is confused Respiratory: no wheezing, no rales (except at bases), no rhonchi Symmetrical Cardiovascular: RRR, no rub no heaves/pulsations Gastrointestinal: soft, non-tender, no distention, positive bowel sounds Musculoskeletal: no edema Neurological: moves all 4 limbs (spont.) Not following commands/disoriented Dx/Plan - Plan DVT proph w/SCDs (no Heparin due to coagulopathy/Anemia) IMPRESSION: 1. Toxic Metabolic Encephalopathy - multifactorial. prob due to Pneumonia ? Aspiration with Serotonin syndrome - uncontrolled 2. Anemia - prob due to chronic disease s/p PRBC 3. Swallow dys - on modified diet 4. Moderate PEM 5. HTN / HLD / Deconditioning / Recent UTI at [facility]/ Recent C diff at [facility] prior to [facility]/ Depression / Coagulopathy prob due to vit K def - improving / obesity BMI 34.9 / ?BRANDON / Hypokalemia/ Hypernatremia 6. Other issues per H&P PLAN: * Cont Ativan - frequency increased due to worsening Myoclonic jerking * Cont Vanc/Cefepime/Azithromycin * Neuro/ID/GI/Critical care following * Cont IVF * Cont current meds as below * AM labs Review of Systems - Review of Systems Other: Cannot obtain due to current mentation - Medications/Allergies Allergies/Adverse Reactions: Allergies Allergy/AdvReac Type Severity Reaction Status Date / Time ciprofloxacin [From Cipro] Allergy Verified 10/23/17 23:04 colchicine Allergy Verified 10/23/17 23:04 levofloxacin [From Levaquin] Allergy Verified 10/23/17 23:04 Sulfa (Sulfonamide Allergy Verified 10/23/17 23:04 Antibiotics) Medications: Current Medications Acetaminophen (Tylenol) 650 mg PO Q6H PRN PRN Reason: Headache/Fever or Pain Last Admin: 10/27/17 09:14 Dose: 650 mg Acetaminophen (Tylenol) 650 mg MT Q6H PRN PRN Reason: FEVER/PAIN Last Admin: 10/29/17 04:03 Dose: 650 mg Albuterol/Ipratropium (Duoneb) 3 ml NEB [id number] [facility] Last Admin: 10/29/17 22:23 Dose: 3 ml Albuterol/Ipratropium (Duoneb) 3 ml NEB [id number] PRN PRN Reason: SOB &/or Wheezing Bisacodyl (Dulcolax) 10 mg PO DAILYPRN PRN PRN Reason: Constipation Calcium/Vitamin D (Caltrate 600 + Vit D) 1 tab PO BID-[facility] Last Admin: 10/29/17 17:16 Dose: Not Given Fentanyl (Sublimaze) 25 mcg SLOW IVP Q4H PRN PRN Reason: Severe Pain (7-10) Last Admin: 10/29/17 00:11 Dose: 25 mcg Folic Acid (Folvite) 1 mg PO DAILY [facility] Last Admin: 10/29/17 07:44 Dose: Not Given Azithromycin 500 mg/ Sodium (Chloride) 250 mls @ 250 mls/hr IVPB Q24HR [facility] Last Admin: 10/29/17 14:46 Dose: 250 mls Cefepime HCl 1 gm/Miscellaneous Medication 1 each/ Sodium Chloride 10 mls @ 120 mls/hr SLOW IVP Q8HR [facility] Last Admin: 10/29/17 22:39 Dose: 10 mls Vancomycin HCl 1.25 gm/ Sodium (Chloride) 250 mls @ 166.667 mls/hr IVPB 1000 [facility] Dextrose/Water (D5w) 1,000 mls @ 100 mls/hr IV .Q10H [facility] Last Admin: 10/29/17 17:19 Dose: 1,000 mls Levothyroxine Sodium (Synthroid) 125 mcg PO 0600 [facility] Last Admin: 10/29/17 05:43 Dose: Not Given Lorazepam (Ativan) 0.5 mg SLOW IVP Q2H PRN PRN Reason: Anxiety/Agitation Last Admin: 10/29/17 22:50 Dose: 0.5 mg Miscellaneous Medication (Pharmacy To Dose) 0 each IVPB ASDIR PRN PRN Reason: Pharmacy to Dose VANCOMYCIN Multivitamins (Theragran) 1 tab PO DAILY [facility] Last Admin: 10/29/17 07:44 Dose: Not Given Nitroglycerin (Nitrostat) 0.4 mg PO Q5MIN PRN PRN Reason: Chest Pain Nystatin (Mycostatin Powder) 0 gm TOP BID [facility] Last Admin: 10/29/17 08:51 Dose: 1 applic Pantoprazole Sodium (Protonix) 40 mg IVP BID [facility] Last Admin: 10/29/17 20:05 Dose: 40 mg Saccharomyces Boulardii (Florastor) 250 mg PO DAILY [facility] Last Admin: 10/29/17 07:44 Dose: Not Given Senna (Senokot) 2 tab PO HSPRN PRN PRN Reason: Constipation Sodium Chloride (Flush - Normal Saline) 10 ml IVF Q12HR [facility] Last Admin: 10/29/17 20:06 Dose: 10 ml Sodium Chloride (Flush - Normal Saline) 10 ml IVF PRN PRN PRN Reason: Saline Flush Last Admin: 10/28/17 22:36 Dose: 10 ml
[2017-10-29] MEDS ORDERED: hydrALAZINE 20 MG/ML VIAL SLOW IVP PRN (23:46)
[2017-10-30] MEDS: Lorazepam 2 MG/ML VIAL SLOW IVP PRN ×4 (01:20→14:20)
[2017-10-30] MEDS: Nystatin Powder 15 GM BOT TOP SCH ×3 (01:21→21:14)
[2017-10-30] MEDS: Dextrose 5% in Water 1,000 ML IV SCH ×2 (03:29→13:17)
[2017-10-30] MEDS: Cefepime 1 GM, Admixture Fee 1 EACH in Sodium Chloride 0.9% 10 ML SLOW IVP SCH ×3 (05:39→21:15)
[2017-10-30 05:40] LABS: Anion Gap 10 mmol/L (10-20); BUN (Urea Nitrogen) 42 mg/dL (9.8-20.1); Calc. Creatinine Clearance 35 mL/min (70-130); Calcium 8.1 mg/dL (7.8-10.44); Carbon Dioxide 29 mmol/L (23-31); Chloride 114 mmol/L (98-107); Estimated GFR-MDRD 23; Glucose 126 mg/dL (83-110); Potassium 3.3 mmol/L (3.5-5.1); Sodium 150 mmol/L (136-145)
[2017-10-30] MEDS: Levothyroxine Sodium 125 MCG TAB PO SCH (06:02)
[2017-10-30] MEDS: Multivit, Therapeutic 1 TAB PO SCH (07:41)
[2017-10-30] MEDS: Saccharomyces boulardii 250 MG CAP PO SCH (07:41)
[2017-10-30] MEDS: Calcium Carbonate + Vit D 1 TAB PO SCH ×2 (07:41→16:49)
[2017-10-30] MEDS: Folic Acid 1 MG TAB PO SCH (07:41)
[2017-10-30 09:26] LABS: Vancomycin, Random 30.3 ug/mL (See Comment)
[2017-10-30] MEDS: Pantoprazole 40 MG VIAL IVP SCH ×2 (10:22→21:14)
[2017-10-30] MEDS: Azithromycin 500 MG in Sodium Chloride 0.9% 250 ML 250 ML IVPB SCH (13:17)
--- NOTE | 2017-10-30 16:07 | PRG ---
DATE OF SERVICE: 10/30/2017 SERVICE: Pulmonary Medicine. INTERVAL HISTORY: The patient is doing great from a respiratory standpoint. She is protecting her a irway a little bit better today. She does not look nearly as restless. That being said, she remains encephalopathic. PHYSICAL EXAMINATION: VITAL SIGNS: Afebrile, pulse 90, blood pressure 160/86, respirations 20, saturation 94% on 4 liters nasal cannula. GENERAL: Patient is somnolent. With a little stimulation, she wakes up and goes back to sleep witho ut any stimulation. HEENT: Normocephalic, atraumatic. Sclerae are white, conjunctivae pink. Oral and nasal mucosa is d ry. No lesions. HEART: Normal rate and regular. ABDOMEN: Soft, nontender, and nondistended. Bowel sounds are positive. MUSCULOSKELETAL: No cyanosis or clubbing. No pitting in the bilateral lower extremities. NEUROLOGIC: Grossly nonfocal. LABORATORY DATA: WBC 14.9, hemoglobin 8.2, and platelets 173,000. This was performed yesterday. He r creatinine is stable at 2.09. Potassium 3.3. Sodium is gently down trending to 150. Basic metabo lic profile is otherwise unremarkable. Urinalysis is unremarkable. MEAGAN screen is abnormal, but the pattern is not evident. ASSESSMENT: 1. Acute hypoxic respiratory failure. 2. Healthcare-associated pneumonia. 3. Chronic diastolic heart failure, returned to euvolemia. 4. Serotonin syndrome. PLAN: We will continue Ativan on an as needed basis. She is clearing her serotonin syndrome. She r emains on the dry side. We will continue our free water replacement. Lasix was interrupted previous ly. Pulmonary or Critical Care will continue to follow.
[2017-10-30] MEDS ORDERED: Potassium Chloride 40 MEQ in Sodium Chloride 0.9% 500 ML IVPB SCH (16:15)
--- NOTE | 2017-10-30 19:34 | PDOC.PN ---
- Subjective Encounter Start Date: 10/30/17 Encounter Start Time: 14:00 -: non-verbal Patient seen and examined. Remains confused with myoclonic jerking. No overnight events - Objective Resuscitation Status: Resuscitation Status DNR:Do Not Resuscitate MAR Reviewed: Yes Vital Signs & Weight: Vital Signs (12 hours) Temp Pulse Resp BP Pulse Ox 10/30/17 15:09 98.4 F 150/85 H 10/30/17 11:32 98.8 F 90 20 160/86 H 94 L 10/30/17 08:17 99.2 F 94 22 H 94 L 10/30/17 07:35 99.2 F 94 22 H 161/86 H 92 L Weight Admit Weight 233 lb 3 oz Weight 213 lb 3 oz I&O: 10/29/17 10/30/17 10/31/17 06:59 06:59 06:59 Intake Total 1492 2140 Output Total 950 1075 450 Balance 542 1065 -450 Result Diagrams: 10/29/17 04:24 10/30/17 03:29 EKG Reviewed by me: Yes (Tele SR) Phys Exam - Physical Examination Confused, Not following commands Respiratory: no wheezing, no rhonchi Scat rales at bases, Symmetrical Cardiovascular: RRR, no rub no heaves/pulsations Gastrointestinal: soft, non-tender, no distention, positive bowel sounds Musculoskeletal: no edema Neuro/Psych - as discussed above. Hypertonia +, Pupils dilated Skin: no rash Dx/Plan - Plan plan discussed w/ family (son at bedside), piedra catheter, continue antibiotics , respiratory therapy, DVT proph w/SCDs (no Lovenox due to Anemia s/p PRBC) IMPRESSION: 1. Toxic Metabolic Encephalopathy - multifactorial. prob due to Pneumonia ? Aspiration with Serotonin syndrome - uncontrolled 2. Anemia - prob due to chronic disease s/p PRBC 3. Swallow dys - NPO due to AMS 4. Moderate PEM 5. HTN / HLD / Deconditioning / Recent UTI at [facility]/ Recent C diff at [facility] prior to [facility]/ Depression / Coagulopathy prob due to vit K def - improving / obesity BMI 34.9 / ?BRANDON / Hypokalemia/ Hypernatremia 6. Other issues per H&P PLAN: * Cont Ativan PRN * Cont Vanc/Cefepime/Azithromycin * Neuro/ID/GI/Critical care following * Cont IVF - Changed to D5W * Cont current meds as below * AM labs * Check CK/uric acid in AM Review of Systems - Review of Systems Other: Cannot obtain due to current cognition - Medications/Allergies Allergies/Adverse Reactions: Allergies Allergy/AdvReac Type Severity Reaction Status Date / Time ciprofloxacin [From Cipro] Allergy Verified 10/23/17 23:04 colchicine Allergy Verified 10/23/17 23:04 levofloxacin [From Levaquin] Allergy Verified 10/23/17 23:04 Sulfa (Sulfonamide Allergy Verified 10/23/17 23:04 Antibiotics) Medications: Current Medications Acetaminophen (Tylenol) 650 mg PO Q6H PRN PRN Reason: Headache/Fever or Pain Last Admin: 10/27/17 09:14 Dose: 650 mg Acetaminophen (Tylenol) 650 mg [place] Q6H PRN PRN Reason: FEVER/PAIN Last Admin: 10/29/17 04:03 Dose: 650 mg Albuterol/Ipratropium (Duoneb) 3 ml NEB [id number] [facility] Last Admin: 10/30/17 18:36 Dose: Not Given Albuterol/Ipratropium (Duoneb) 3 ml NEB [id number] PRN PRN Reason: SOB &/or Wheezing Bisacodyl (Dulcolax) 10 mg PO DAILYPRN PRN PRN Reason: Constipation Calcium/Vitamin D (Caltrate 600 + Vit D) 1 tab PO BID-[facility] Last Admin: 10/30/17 16:49 Dose: Not Given Fentanyl (Sublimaze) 25 mcg SLOW IVP Q4H PRN PRN Reason: Severe Pain (7-10) Last Admin: 10/29/17 00:11 Dose: 25 mcg Folic Acid (Folvite) 1 mg PO DAILY [facility] Last Admin: 10/30/17 07:41 Dose: Not Given Hydralazine HCl (Apresoline) 10 mg SLOW IVP Q4H PRN PRN Reason: FOR SBP > 170 Azithromycin 500 mg/ Sodium (Chloride) 250 mls @ 250 mls/hr IVPB Q24HR [facility] Last Admin: 10/30/17 13:17 Dose: 250 mls Cefepime HCl 1 gm/Miscellaneous Medication 1 each/ Sodium Chloride 10 mls @ 120 mls/hr SLOW IVP Q8HR [facility] Last Admin: 10/30/17 13:16 Dose: 10 mls Vancomycin HCl 1.25 gm/ Sodium (Chloride) 250 mls @ 166.667 mls/hr IVPB 1000 [facility] Dextrose/Water (D5w) 1,000 mls @ 100 mls/hr IV .Q10H [facility] Last Admin: 10/30/17 13:17 Dose: 1,000 mls Potassium Chloride 40 meq/ (Sodium Chloride) 520 mls @ 130 mls/hr IVPB NOW [facility] Stop: 10/30/17 20:14 Last Admin: 10/30/17 18:13 Dose: 520 mls Levothyroxine Sodium (Synthroid) 125 mcg PO 0600 [facility] Last Admin: 10/30/17 06:02 Dose: Not Given Lorazepam (Ativan) 0.5 mg SLOW IVP Q2H PRN PRN Reason: Anxiety/Agitation Last Admin: 10/30/17 14:20 Dose: 0.5 mg Miscellaneous Medication (Pharmacy To Dose) 0 each IVPB ASDIR PRN PRN Reason: Pharmacy to Dose VANCOMYCIN Multivitamins (Theragran) 1 tab PO DAILY [facility] Last Admin: 10/30/17 07:41 Dose: Not Given Nitroglycerin (Nitrostat) 0.4 mg PO Q5MIN PRN PRN Reason: Chest Pain Nystatin (Mycostatin Powder) 0 gm TOP BID [facility] Last Admin: 10/30/17 10:16 Dose: 1 applic Pantoprazole Sodium (Protonix) 40 mg IVP BID [facility] Last Admin: 10/30/17 10:22 Dose: 40 mg Saccharomyces Boulardii (Florastor) 250 mg PO DAILY [facility] Last Admin: 10/30/17 07:41 Dose: Not Given Senna (Senokot) 2 tab PO HSPRN PRN PRN Reason: Constipation Sodium Chloride (Flush - Normal Saline) 10 ml IVF Q12HR [facility] Last Admin: 10/30/17 10:19 Dose: 10 ml Sodium Chloride (Flush - Normal Saline) 10 ml IVF PRN PRN PRN Reason: Saline Flush Last Admin: 10/30/17 05:39 Dose: 10 ml
[2017-10-31] MEDS: Dextrose 5% in Water 1,000 ML IV SCH ×3 (00:58→21:23)
[2017-10-31] MEDS: Lorazepam 2 MG/ML VIAL SLOW IVP PRN ×2 (01:13→08:54)
[2017-10-31 05:32] LABS: #Eosinphils 0.1 thou/uL (0.0-0.7); #Lymphocytes 1.4 thou/uL (1.20-3.40); #Monocytes 0.3 thou/uL (0.11-0.59); #Neutrophils 10.2 thou/uL (1.40-6.50); %Eosinophils 0.7 % (0.0-10.0); %Lymphocytes 11.4 % (21.0-51.0); %Monocytes 2.4 % (0.0-10.0); %Neutrophils 85.4 % (42.0-75.0); Hemoglobin 7.6 g/dL (12.0-16.0); Mean Corpuscular HGB CONC 30.5 g/dL (32.0-36.0); Mean Corpuscular Hemoglobin 28.4 pg (27.0-31.0); Mean Platelet Volume 9.9 fL (7.4-10.4); Platelet Count 125 thou/uL (130-400); RBC Distribution Width 16.3 % (11.5-14.5); Red Blood Cell (RBC) Count 2.66 mill/uL (4.20-5.40); White Blood Cell (WBC) Count 11.9 thou/uL (4.8-10.8)
[2017-10-31] MEDS: Cefepime 1 GM, Admixture Fee 1 EACH in Sodium Chloride 0.9% 10 ML SLOW IVP SCH ×3 (05:38→21:21)
[2017-10-31] MEDS: Levothyroxine Sodium 125 MCG TAB PO SCH (05:42)
[2017-10-31 05:51] LABS: Anion Gap 9 mmol/L (10-20); BUN (Urea Nitrogen) 35 mg/dL (9.8-20.1); Calc. Creatinine Clearance 38 mL/min (70-130); Calcium 7.8 mg/dL (7.8-10.44); Carbon Dioxide 28 mmol/L (23-31); Chloride 112 mmol/L (98-107); Estimated GFR-MDRD 25; Glucose 121 mg/dL (83-110); Potassium 3.4 mmol/L (3.5-5.1); Sodium 146 mmol/L (136-145)
[2017-10-31 06:46] LABS: CK (CPK) 15 U/L (29-168); Magnesium 1.5 mg/dL (1.6-2.6); Uric Acid 10.8 mg/dL (2.6-6.0)
[2017-10-31 06:53] LABS: Phosphorus 1.6 mg/dL (2.3-4.7)
[2017-10-31] MEDS ORDERED: Magnesium 2 GM/NS 0.9% 100 ML 2 GM in Premix Bag 1 BAG IVPB SCH ×2 (08:00→15:00)
[2017-10-31] MEDS ORDERED: Potassium Phosphate 9 MMOL in Sodium Chloride 0.9% 100 ML IVPB SCH (08:30)
[2017-10-31] MEDS: Pantoprazole 40 MG VIAL IVP SCH ×2 (08:58→21:21)
[2017-10-31] MEDS: Calcium Carbonate + Vit D 1 TAB PO SCH ×2 (08:59→17:27)
[2017-10-31] MEDS: Multivit, Therapeutic 1 TAB PO SCH (09:01)
[2017-10-31] MEDS: Nystatin Powder 15 GM BOT TOP SCH ×2 (09:01→21:21)
[2017-10-31] MEDS: Folic Acid 1 MG TAB PO SCH (09:01)
[2017-10-31] MEDS: Saccharomyces boulardii 250 MG CAP PO SCH (09:02)
[2017-10-31 09:07] LABS: Vancomycin, Random 23.4 ug/mL (See Comment)
[2017-10-31] MEDS: Azithromycin 500 MG in Sodium Chloride 0.9% 250 ML 250 ML IVPB SCH (13:36)
--- NOTE | 2017-10-31 14:33 | PRG ---
DATE OF SERVICE: 10/31/2017 SERVICE: Pulmonary Medicine. INTERVAL HISTORY: The patient is doing outstanding from a respiratory standpoint. She is on 1-2 lit ers nasal cannula. Her saturations are okay. Her encephalopathy seems to be clearing a little bit. Today, when I walked and said her name, she opened her eyes and attended. She is moving all 4 extre mities, spontaneously. PHYSICAL EXAMINATION: VITAL SIGNS: Afebrile, pulse 92, blood pressure 163/86, respirations 20, saturation 95% on 3 liters nasal cannula. GENERAL: The patient is awake and alert. Patient wakes up fairly commonly. That being said with an y stimulation, she becomes agitated. She screams out whenever you touch anything on her body includi ng upper extremities, lower extremities, or stomach. HEENT: Normocephalic, atraumatic. Sclerae are white, conjunctivae pink. Oral and nasal mucosa is m oist without lesions. LUNGS: Decent air entry with rhonchi present. I do not appreciate crackles. No wheezing. HEART: Normal rate, regular. ABDOMEN: Soft, nontender, and nondistended. Bowel sounds are positive. There is no rebound or guar ding. GENITOURINARY: She has Moreno catheter in place. NEUROLOGIC: Grossly nonfocal. LABORATORY DATA: WBC 11.9, hemoglobin 7.6 and gently down trending, platelets 125,000. Sodium is ge ntly down trending to 146, potassium 3.4, chloride 112. Creatinine 1.95 and gently down trending, BU N 35. Uric acid is 10.8 and also slowly improving. Magnesium 1.5, phosphorus 1.6. CK is unremarkab le. Blood cultures and urine cultures remain negative. ASSESSMENT: 1. Acute hypoxic respiratory failure. 2. Healthcare-associated pneumonia. 3. Chronic diastolic heart failure, return to euvolemia. 4. Serotonin syndrome, resolved. PLAN: We will continue p.r.n. Ativan. We will also continue free water. Electrolytes including pot assium, magnesium, and phosphorus will be replaced once again. Pulmonary or Critical Care will katalina nue to follow.
[2017-10-31] MEDS ORDERED: Potassium Chloride 40 MEQ in Sodium Chloride 0.9% 250 ML 250 ML IVPB SCH ×2 (15:30→22:00)
[2017-10-31] MEDS ORDERED: Potassium Phosphate 30 MMOL in Sodium Chloride 0.9% 500 ML IVPB SCH (15:30)
--- NOTE | 2017-10-31 20:43 | PDOC.PN ---
- Subjective Encounter Start Date: 10/31/17 Encounter Start Time: 09:00 -: non-verbal Patient seen and examined. No overnight events. - Objective Resuscitation Status: Resuscitation Status DNR:Do Not Resuscitate MAR Reviewed: Yes Vital Signs & Weight: Vital Signs (12 hours) Temp Pulse Resp BP Pulse Ox 10/31/17 18:29 85 20 96 10/31/17 15:21 98.3 F 89 23 H 177/98 H 100 10/31/17 14:29 89 20 10/31/17 11:07 97.6 F 92 28 H 163/86 H 95 10/31/17 10:15 86 20 Weight Admit Weight 233 lb 3 oz Weight 218 lb 9.6 oz I&O: 10/30/17 10/31/17 11/01/17 06:59 06:59 06:59 Intake Total 2140 1250 1256 Output Total 1075 925 600 Balance 1065 325 656 Result Diagrams: 11/01/17 04:26 11/01/17 04:26 EKG Reviewed by me: Yes (Tele SR) Phys Exam - Physical Examination Constitutional: NAD (myoclonic jerking +) Respiratory: no wheezing, no rhonchi Cardiovascular: RRR, no rub Gastrointestinal: soft, non-tender, positive bowel sounds Musculoskeletal: no edema Neuro/Psyc - more calmer today with less jerking Dx/Plan - Plan DVT proph w/SCDs IMPRESSION: 1. Toxic Metabolic Encephalopathy - multifactorial. prob due to Pneumonia ? Aspiration with Serotonin syndrome / Acute gout flare - improving 2. Anemia - prob due to chronic disease s/p PRBC 3. Swallow dys - NPO due to AMS 4. Moderate PEM 5. HTN / HLD / Deconditioning / Recent UTI at [facility]/ Recent C diff at [facility] prior to [facility]/ Depression / Coagulopathy prob due to vit K def - improving / obesity BMI 34.9 / ?BRANDON / Hypokalemia/ Hypernatremia 6. Other issues per H&P PLAN: * Cont Vanc/Cefepime/Azithromycin * Cont Ativan PRN * Neuro/ID/GI/Critical care following * Cont IVF * Cont current meds as below * AM labs * Will consider tube feeds if stays NPO Review of Systems - Review of Systems Respiratory: negative: Cough, Dry, Shortness of Breath, Hemoptysis, SOB with Excertion, Pleuritic Pain, Sputum, Wheezing Cardiovascular: negative: chest pain, palpitations, orthopnea, paroxysmal nocturnal dyspnea, edema, light headedness - Medications/Allergies Allergies/Adverse Reactions: Allergies Allergy/AdvReac Type Severity Reaction Status Date / Time ciprofloxacin [From Cipro] Allergy Verified 10/23/17 23:04 colchicine Allergy Verified 10/23/17 23:04 levofloxacin [From Levaquin] Allergy Verified 10/23/17 23:04 Sulfa (Sulfonamide Allergy Verified 10/23/17 23:04 Antibiotics) Medications: Current Medications Acetaminophen (Tylenol) 650 mg PO Q6H PRN PRN Reason: Headache/Fever or Pain Last Admin: 10/27/17 09:14 Dose: 650 mg Acetaminophen (Tylenol) 650 mg MT Q6H PRN PRN Reason: FEVER/PAIN Last Admin: 10/29/17 04:03 Dose: 650 mg Albuterol/Ipratropium (Duoneb) 3 ml NEB [id number] [facility] Last Admin: 10/31/17 18:29 Dose: 3 ml Albuterol/Ipratropium (Duoneb) 3 ml NEB [id number] PRN PRN Reason: SOB &/or Wheezing Bisacodyl (Dulcolax) 10 mg PO DAILYPRN PRN PRN Reason: Constipation Calcium/Vitamin D (Caltrate 600 + Vit D) 1 tab PO BID-[facility] Last Admin: 10/31/17 17:27 Dose: Not Given Fentanyl (Sublimaze) 25 mcg SLOW IVP Q4H PRN PRN Reason: Severe Pain (7-10) Last Admin: 10/29/17 00:11 Dose: 25 mcg Folic Acid (Folvite) 1 mg PO DAILY [facility] Last Admin: 10/31/17 09:01 Dose: Not Given Hydralazine HCl (Apresoline) 10 mg SLOW IVP Q4H PRN PRN Reason: FOR SBP > 170 Azithromycin 500 mg/ Sodium (Chloride) 250 mls @ 250 mls/hr IVPB Q24HR [facility] Last Admin: 10/31/17 13:36 Dose: 250 mls Cefepime HCl 1 gm/Miscellaneous Medication 1 each/ Sodium Chloride 10 mls @ 120 mls/hr SLOW IVP Q8HR [facility] Last Admin: 10/31/17 13:36 Dose: 10 mls Vancomycin HCl 1.25 gm/ Sodium (Chloride) 250 mls @ 166.667 mls/hr IVPB 1000 [facility] Dextrose/Water (D5w) 1,000 mls @ 100 mls/hr IV .Q10H [facility] Last Admin: 10/31/17 08:20 Dose: 1,000 mls Potassium Phosphate 30 mmol/ (Sodium Chloride) 510 mls @ 83.3 mls/hr IVPB NOW [facility] Stop: 10/31/17 21:38 Last Admin: 10/31/17 15:24 Dose: 510 mls Potassium Chloride 40 meq/ (Sodium Chloride) 270 mls @ 67.5 mls/hr IVPB 2200 [facility] Stop: 11/01/17 01:59 Levothyroxine Sodium (Synthroid) 125 mcg PO 0600 [facility] Last Admin: 10/31/17 05:42 Dose: Not Given Lorazepam (Ativan) 0.5 mg SLOW IVP Q2H PRN PRN Reason: Anxiety/Agitation Last Admin: 10/31/17 08:54 Dose: 0.5 mg Miscellaneous Medication (Pharmacy To Dose) 0 each IVPB ASDIR PRN PRN Reason: Pharmacy to Dose VANCOMYCIN Multivitamins (Theragran) 1 tab PO DAILY [facility] Last Admin: 10/31/17 09:01 Dose: Not Given Nitroglycerin (Nitrostat) 0.4 mg PO Q5MIN PRN PRN Reason: Chest Pain Nystatin (Mycostatin Powder) 0 gm TOP BID [facility] Last Admin: 10/31/17 09:01 Dose: 1 applic Pantoprazole Sodium (Protonix) 40 mg IVP BID [facility] Last Admin: 10/31/17 08:58 Dose: 40 mg Saccharomyces Boulardii (Florastor) 250 mg PO DAILY [facility] Last Admin: 10/31/17 09:02 Dose: Not Given Senna (Senokot) 2 tab PO HSPRN PRN PRN Reason: Constipation Sodium Chloride (Flush - Normal Saline) 10 ml IVF Q12HR [facility] Last Admin: 10/31/17 09:02 Dose: 10 ml Sodium Chloride (Flush - Normal Saline) 10 ml IVF PRN PRN PRN Reason: Saline Flush Last Admin: 10/31/17 13:44 Dose: 10 ml
[2017-11-01] MEDS: Lorazepam 2 MG/ML VIAL SLOW IVP PRN (01:09)
[2017-11-01 05:56] LABS: #Eosinphils 0.2 thou/uL (0.0-0.7); #Lymphocytes 1.4 thou/uL (1.20-3.40); #Monocytes 0.5 thou/uL (0.11-0.59); #Neutrophils 15.5 thou/uL (1.40-6.50); %Eosinophils 1.1 % (0.0-10.0); %Lymphocytes 8.1 % (21.0-51.0); %Monocytes 2.7 % (0.0-10.0); %Neutrophils 88.1 % (42.0-75.0); Hemoglobin 8.3 g/dL (12.0-16.0); Mean Corpuscular HGB CONC 30.4 g/dL (32.0-36.0); Mean Corpuscular Hemoglobin 27.5 pg (27.0-31.0); Mean Corpuscular Volume 90.4 fl (81.0-99.0); Mean Platelet Volume 10.1 fL (7.4-10.4); Platelet Count 146 thou/uL (130-400); RBC Distribution Width 16.5 % (11.5-14.5); Red Blood Cell (RBC) Count 3.02 mill/uL (4.20-5.40); White Blood Cell (WBC) Count 17.6 thou/uL (4.8-10.8)
[2017-11-01 06:20] LABS: Vancomycin, Random 20.2 ug/mL (See Comment)
[2017-11-01] MEDS: Cefepime 1 GM, Admixture Fee 1 EACH in Sodium Chloride 0.9% 10 ML SLOW IVP SCH ×3 (06:31→21:41)
[2017-11-01] MEDS: Levothyroxine Sodium 125 MCG TAB PO SCH (06:32)
[2017-11-01] MEDS: Dextrose 5% in Water 1,000 ML IV SCH ×2 (06:32→16:21)
[2017-11-01 06:47] LABS: Anion Gap 10 mmol/L (10-20); BUN (Urea Nitrogen) 33 mg/dL (9.8-20.1); Calc. Creatinine Clearance 40 mL/min (70-130); Calcium 7.8 mg/dL (7.8-10.44); Carbon Dioxide 25 mmol/L (23-31); Chloride 111 mmol/L (98-107); Estimated GFR-MDRD 26; Glucose 116 mg/dL (83-110); Phosphorus 3.1 mg/dL (2.3-4.7); Potassium 4.4 mmol/L (3.5-5.1); Sodium 142 mmol/L (136-145)
[2017-11-01] MEDS: Pantoprazole 40 MG VIAL IVP SCH ×2 (09:22→21:40)
[2017-11-01] MEDS: Nystatin Powder 15 GM BOT TOP SCH ×2 (09:22→21:41)
[2017-11-01] MEDS: Azithromycin 500 MG in Sodium Chloride 0.9% 250 ML 250 ML IVPB SCH (12:58)
[2017-11-01] MEDS: Calcium Carbonate + Vit D 1 TAB PO SCH ×2 (12:58→20:05)
[2017-11-01] MEDS: Saccharomyces boulardii 250 MG CAP PO SCH (12:59)
[2017-11-01] MEDS: Multivit, Therapeutic 1 TAB PO SCH (12:59)
[2017-11-01] MEDS: Folic Acid 1 MG TAB PO SCH (12:59)
--- NOTE | 2017-11-01 13:30 | PRG ---
DATE OF SERVICE: 11/01/2017 SUBJECTIVE: The patient continues to be incoherent. She is not able to be answering questions. The patient has not had any bowel movements in the last 2-3 days. OBJECTIVE: VITAL SIGNS: Temperature 99.1, pulse 91, respiratory rate 28, blood pressure 171/107. CHEST: Clear. CARDIOVASCULAR: Regular rate and rhythm. ABDOMEN: Soft, nontender. LABORATORY DATA: Shows a white blood cell count 17.6, hemoglobin 8.3, hematocrit 27.3. Chemistries show a BUN 33, creatinine 1.89, glucose 116. ASSESSMENT: 1. Altered mental status. 2. Anemia of chronic disease. 3. Pneumonia. 4. History of Clostridium difficile. RECOMMENDATIONS: 1. Check stool for C. difficile. 2. The patient may need nutritional support with nasogastric feedings.
[2017-11-01] MEDS ORDERED: Furosemide 20 MG/2 ML VIAL SLOW IVP SCH (14:00)
[2017-11-01] MEDS ORDERED: methylPREDNISolone Sod Succ/PF 125 MG/2 ML VIAL IVP SCH (14:00)
--- NOTE | 2017-11-01 15:32 | RAD ---
CHEST 1 VIEW: HISTORY: Shortness of breath. COMPARISON: 10/27/17. FINDINGS: Enlarged cardiac silhouette, in part due to technique. Pulmonary vessels are prominent . There is di ffuse interstitial and alveolar opacity, similar to the earlier examination suggesting multifocal kari ma/infiltrate. When compared to the prior examination, the degree of opacification has not changed. No significant pleural fluid. No pneumothorax or osseous abnormalities. IMPRESSION: No significant interval change. POS: [facility]
--- NOTE | 2017-11-01 16:05 | PRG ---
DATE OF SERVICE: 11/01/2017 SUBJECTIVE: Ms. Chu remains encephalopathic. PHYSICAL EXAMINATION: VITAL SIGNS: She is afebrile, heart rate 92, respiratory rates in the 20s, oximetry is 93% on a mono muriel, blood pressure has been variable, but she has been modestly hypertensive today. LUNGS: Remarkable for mild rhonchi bilaterally. HEART: Regular rhythm. ABDOMEN: Soft. IMPRESSION: 1. Encephalopathy. 2. Pneumonia. Chest radiograph today is unchanged. PLAN: Continue supportive care.
[2017-11-01 16:53] LABS: Reference Lab Name LABCORP
[2017-11-01 19:46] LABS: Actual Bicarbonate (HCO3a) 24.6 mEq/L (22-26); Base Excess (BEa) -0.3 mEq/L (0 (+/-) 2.5); CO2 Tension 41.4 mmHg (35.0-45.0); Hematocrit-ABG 28.8 % (36.0-47.0); Hemoglobin (Hb) 8.6 g/dL (12.0-16.0); O2 Tension (PaO2) 112.8 mmHg (80.0-100.0); pH, Arterial 7.39 (7.35-7.45)
[2017-11-01 19:47] LABS: Calcium, Ionized 1.1 mmol/L (1.12-1.30); Puncture Site RRA
[2017-11-01] MEDS ORDERED: Furosemide 40 MG/4 ML VIAL SLOW IVP SCH (20:00)
--- NOTE | 2017-11-01 22:51 | PDOC.PN ---
- Subjective Encounter Start Date: 11/01/17 Encounter Start Time: 14:30 -: non-verbal Patient seen and examined. Remains confused. No overnight events - Objective Resuscitation Status: Resuscitation Status FULL:Full Resuscitation MAR Reviewed: Yes Vital Signs & Weight: Vital Signs (12 hours) Temp Pulse Resp BP Pulse Ox 11/01/17 22:01 93 20 96 11/01/17 18:26 92 20 91 L 11/01/17 16:00 98.3 F 96 24 H 171/107 H 11/01/17 14:34 92 24 H 93 L 11/01/17 12:00 99.1 F 91 28 H 171/107 H 92 L Weight Admit Weight 233 lb 3 oz Weight 220 lb 9.6 oz I&O: 10/31/17 11/01/17 11/02/17 06:59 06:59 06:59 Intake Total 1250 2726 800 Output Total 925 975 600 Balance 325 1751 200 Result Diagrams: 11/02/17 05:27 11/02/17 05:27 Radiology Reviewed by me: Yes (CXR - no significant change) EKG Reviewed by me: Yes (Tele SR) Phys Exam - Physical Examination Encephalopathic Respiratory: no wheezing Bibasilar rales/scat rhonchi/Symmetrical. Accessory muscle use Cardiovascular: RRR, no rub no heaves/pulsations Gastrointestinal: soft, positive bowel sounds no guarding/rigidity Musculoskeletal: edema present (B/L UE) Neuro/Psych - no significant change Dx/Plan - Plan plan discussed w/ family (Son clarified the code status as no CPR. Does not want mother in per vegetative state. ), DVT proph w/SCDs IMPRESSION: 1. Toxic Metabolic Encephalopathy - multifactorial. prob due to Pneumonia ? Aspiration with Serotonin syndrome / Acute gout flare - improving 2. Anemia - prob due to chronic disease s/p PRBC 3. Swallow dys - NPO due to AMS 4. Moderate PEM 5. HTN / HLD / Deconditioning / Recent UTI at [facility]/ Recent C diff at [facility] to [facility]/ Depression / Coagulopathy prob due to vit K def - improving / obesity BMI 34.9 / ?BRANDON / Hypokalemia/ Hypernatremia 6. Other issues per H&P PLAN: * Restart Solumedrol 40 mg daily * IV Lasix * Change code status to full code/No CPR - per son's request. I d/w son that progosis is poor. * Cont Atbx * Cont Ativan PRN * Neuro/ID/GI/Critical care following * Cont IVF at 50 ml/hr * Cont current meds as below * AM labs * Will consider tube feeds if stays NPO Review of Systems - Review of Systems Other: Cannot obtain due to current mentation - Medications/Allergies Allergies/Adverse Reactions: Allergies Allergy/AdvReac Type Severity Reaction Status Date / Time ciprofloxacin [From Cipro] Allergy Verified 10/23/17 23:04 colchicine Allergy Verified 10/23/17 23:04 levofloxacin [From Levaquin] Allergy Verified 10/23/17 23:04 Sulfa (Sulfonamide Allergy Verified 10/23/17 23:04 Antibiotics) Medications: Current Medications Acetaminophen (Tylenol) 650 mg PO Q6H PRN PRN Reason: Headache/Fever or Pain Last Admin: 10/27/17 09:14 Dose: 650 mg Acetaminophen (Tylenol) 650 mg [place] Q6H PRN PRN Reason: FEVER/PAIN Last Admin: 10/29/17 04:03 Dose: 650 mg Albuterol/Ipratropium (Duoneb) 3 ml NEB [id number] [facility] Last Admin: 11/01/17 22:01 Dose: 3 ml Albuterol/Ipratropium (Duoneb) 3 ml NEB [id number] PRN PRN Reason: SOB &/or Wheezing Bisacodyl (Dulcolax) 10 mg PO DAILYPRN PRN PRN Reason: Constipation Calcium/Vitamin D (Caltrate 600 + Vit D) 1 tab PO BID-[facility] Last Admin: 11/01/17 20:05 Dose: Not Given Fentanyl (Sublimaze) 25 mcg SLOW IVP Q4H PRN PRN Reason: Severe Pain (7-10) Last Admin: 10/29/17 00:11 Dose: 25 mcg Folic Acid (Folvite) 1 mg PO DAILY [facility] Last Admin: 11/01/17 12:59 Dose: Not Given Hydralazine HCl (Apresoline) 10 mg SLOW IVP Q4H PRN PRN Reason: FOR SBP > 170 Azithromycin 500 mg/ Sodium (Chloride) 250 mls @ 250 mls/hr IVPB Q24HR [facility] Last Admin: 11/01/17 12:58 Dose: 250 mls Cefepime HCl 1 gm/Miscellaneous Medication 1 each/ Sodium Chloride 10 mls @ 120 mls/hr SLOW IVP Q8HR [facility] Last Admin: 11/01/17 21:41 Dose: 10 mls Vancomycin HCl 1.25 gm/ Sodium (Chloride) 250 mls @ 166.667 mls/hr IVPB 1000 [facility] Dextrose/Water (D5w) 1,000 mls @ 50 mls/hr IV .Q20H [facility] Last Admin: 11/01/17 16:21 Dose: 1,000 mls Levothyroxine Sodium (Synthroid) 125 mcg PO 0600 [facility] Last Admin: 11/01/17 06:32 Dose: Not Given Lorazepam (Ativan) 0.5 mg SLOW IVP Q2H PRN PRN Reason: Anxiety/Agitation Last Admin: 11/01/17 01:09 Dose: 0.5 mg Methylprednisolone Sodium Succinate (Solu-Medrol) 40 mg IVP DAILY [facility] Last Admin: 11/01/17 16:22 Dose: 40 mg Miscellaneous Medication (Pharmacy To Dose) 0 each IVPB ASDIR PRN PRN Reason: Pharmacy to Dose VANCOMYCIN Multivitamins (Theragran) 1 tab PO DAILY [facility] Last Admin: 11/01/17 12:59 Dose: Not Given Nitroglycerin (Nitrostat) 0.4 mg PO Q5MIN PRN PRN Reason: Chest Pain Nystatin (Mycostatin Powder) 0 gm TOP BID [facility] Last Admin: 11/01/17 21:41 Dose: 1 applic Pantoprazole Sodium (Protonix) 40 mg IVP BID [facility] Last Admin: 11/01/17 21:40 Dose: 40 mg Saccharomyces Boulardii (Florastor) 250 mg PO DAILY [facility] Last Admin: 11/01/17 12:59 Dose: Not Given Senna (Senokot) 2 tab PO HSPRN PRN PRN Reason: Constipation Sodium Chloride (Flush - Normal Saline) 10 ml IVF Q12HR [facility] Last Admin: 11/01/17 21:41 Dose: 10 ml Sodium Chloride (Flush - Normal Saline) 10 ml IVF PRN PRN PRN Reason: Saline Flush Last Admin: 10/31/17 13:44 Dose: 10 ml
[2017-11-01] MEDS ORDERED: Labetalol HCl 100 MG/20 ML VIAL SLOW IVP PRN (22:53)
[2017-11-01] MEDS ORDERED: hydrALAZINE 20 MG/ML VIAL SLOW IVP PRN (22:53)
[2017-11-01] MEDS ORDERED: Nitroglycerin 2% Ointment 1 INCH/1 GM Packet TOP SCH (23:15)
[2017-11-02] MEDS: Dextrose 5% in Water 1,000 ML IV SCH ×2 (00:05→22:01)
[2017-11-02] MEDS: Cefepime 1 GM, Admixture Fee 1 EACH in Sodium Chloride 0.9% 10 ML SLOW IVP SCH ×3 (05:19→22:05)
[2017-11-02] MEDS: Levothyroxine 100 MCG SDV IVP SCH (05:19)
[2017-11-02] MEDS: Nitroglycerin 2% Ointment 1 INCH/1 GM Packet TOP SCH ×3 (05:19→22:06)
[2017-11-02 05:52] LABS: #Lymphocytes 1.3 thou/uL (1.20-3.40); #Monocytes 0.5 thou/uL (0.11-0.59); #Neutrophils 17.7 thou/uL (1.40-6.50); %Basophils 0.1 % (0.0-1.0); %Eosinophils 0.1 % (0.0-10.0); %Lymphocytes 6.6 % (21.0-51.0); %Monocytes 2.5 % (0.0-10.0); %Neutrophils 90.6 % (42.0-75.0); Hemoglobin 7.9 g/dL (12.0-16.0); Mean Corpuscular HGB CONC 30.2 g/dL (32.0-36.0); Mean Corpuscular Hemoglobin 26.9 pg (27.0-31.0); Mean Corpuscular Volume 89.1 fl (81.0-99.0); Mean Platelet Volume 10.1 fL (7.4-10.4); Platelet Count 141 thou/uL (130-400); RBC Distribution Width 16.7 % (11.5-14.5); Red Blood Cell (RBC) Count 2.92 mill/uL (4.20-5.40); White Blood Cell (WBC) Count 19.5 thou/uL (4.8-10.8)
[2017-11-02 06:17] LABS: Vancomycin, Random 17.6 ug/mL (See Comment)
[2017-11-02 06:18] LABS: Anion Gap 12 mmol/L (10-20); BUN (Urea Nitrogen) 35 mg/dL (9.8-20.1); Calc. Creatinine Clearance 36 mL/min (70-130); Calcium 7.8 mg/dL (7.8-10.44); Carbon Dioxide 24 mmol/L (23-31); Chloride 107 mmol/L (98-107); Estimated GFR-MDRD 22; Glucose 148 mg/dL (83-110); Magnesium 1.7 mg/dL (1.6-2.6); Phosphorus 2.7 mg/dL (2.3-4.7); Potassium 3.8 mmol/L (3.5-5.1); Sodium 139 mmol/L (136-145)
[2017-11-02] MEDS: Calcium Carbonate + Vit D 1 TAB PO SCH ×2 (07:34→21:21)
[2017-11-02] MEDS: Multivit, Therapeutic 1 TAB PO SCH (07:34)
[2017-11-02] MEDS: Folic Acid 1 MG TAB PO SCH (07:34)
[2017-11-02] MEDS: Lorazepam 2 MG/ML VIAL SLOW IVP PRN ×2 (08:20→18:03)
[2017-11-02] MEDS: Pantoprazole 40 MG VIAL IVP SCH ×2 (08:21→21:59)
[2017-11-02] MEDS: Nystatin Powder 15 GM BOT TOP SCH ×2 (08:21→21:59)
--- NOTE | 2017-11-02 09:32 | PRG ---
DATE OF SERVICE: 11/01/2017 HISTORY: Ms. Chu is not very responsive. She leans towards the right side, is not mumbling any sounds today and does not establish eye contact. She has obvious poor control of respiratory secretions. PHYSICAL EXAMINATION: VITAL SIGNS: T-max of 99.1, blood pressure 177/107, respiratory rate 20-24, O2 sats 91 92%. SKIN: Shows no layers of skin breakdown. She has an indwelling Moreno catheter in place. HEENT: The ocular movements appear conjugate, but the pupils are very dilated as noted previously about 4-5 mm. They both are sluggishly reactive. Very little reaction noted, very symmetrically dilated. LUNGS: With coarse breath sounds with inspiratory crackles spread diffusely through right and left hemithorax. She has obvious large airway secretions which she cannot cough up or prevent aspiration. ABDOMEN: Soft, not distended. She is diffusely weak. The left plantar reflexes are extensor, the right is flexor. No clonus is noted. She is obtunded. She does not establish eye contact. LABORATORY DATA: The latest labs with white cell count 17.6, hemoglobin 8.3, platelets 146,000 and creatinine 1.89. Microbiology with negative blood cultures and a chest x-ray with no significant interval change. ASSESSMENT AND PLAN: Polyarticular gout, hypertension, and cognitive dysfunction, change in mental status which was quite dramatic upon discussions with prison staff compared with premorbid state. She was able to interact with examiner and answer questions and so on and now she is totally obtunded and has this bilaterally, very dilated pupils. She has an upgoing toe on the left side. The evaluation by Neurology has been completed and their impression was toxic metabolic encephalopathy versus serotonin syndrome. Other possibilites such as brainstem infarct, botulism and severe Guillain [place] appear less likely. I have checked her retinal exam by funduscopic eval and disks are sharp, vessels are not engorged, there is one area of hemorrhage L retina. On 11/02 her pupils are much more reactive (constrict to 3 mm, symmetrically) pretty much ruling out botulism, CVA or other causes of raised intracranial pressure. It makes serotonin syndrome a more likely scenario although she has not had much temp elevation documented and it would be unusual that she was admitted with such syndrome without more overt manifestations of tachycardia, temp elevation. Since there is no test for it, we will depend on the reversibility of the process, which seems to be occurring. Encephalitis has not been ruled out however and that would require MRI and CSF evaluation. MTDD
[2017-11-02] MEDS: Vancomycin HCl 1.25 GM in Sodium Chloride 0.9% 250 ML 250 ML IVPB SCH ×3 (11:33→11:38)
[2017-11-02] MEDS ORDERED: Vancomycin HCl 500 MG in Sodium Chloride 0.9% 100 ML IVPB SCH ×4 (12:00)
[2017-11-02 13:05] VITALS: BMI 35.4
[2017-11-02] MEDS: Azithromycin 500 MG in Sodium Chloride 0.9% 250 ML 250 ML IVPB SCH (14:16)
--- NOTE | 2017-11-02 16:43 | PRG ---
DATE OF SERVICE: 11/02/2017 SUBJECTIVE: The patient continues to have altered mental status. She answers no questions. She is not oriented to place, person or time. She does not respond to verbal stimuli. She does groan when palpating her abdomen. OBJECTIVE: VITAL SIGNS: Temperature 99.0, pulse 86, respiratory rate 24, blood pressure 150/84. CHEST: Clear. CARDIOVASCULAR: Regular rate and rhythm. ABDOMEN: Soft and nontender without organomegaly or masses. LABORATORY DATA: Shows white blood cell count of 19.5, hemoglobin 7.9, hematocrit 26.1. Chemistries significant for BUN 35, creatinine 2.16, glucose 148. ASSESSMENT: 1. Altered mental status. 2. Pneumonia. 3. Anemia. RECOMMENDATIONS: The patient will need some sort of nutritional intervention. We will go ahead and begin intervention with a Dobbhoff feeding tube and enteral feedings.
--- NOTE | 2017-11-02 22:39 | PDOC.PN ---
- Subjective Encounter Start Date: 11/02/17 Encounter Start Time: 13:00 -: non-verbal Patient seen and examined. No change in mentation. Events noted - Objective Resuscitation Status: Resuscitation Status DNR:Do Not Resuscitate MAR Reviewed: Yes Vital Signs & Weight: Vital Signs (12 hours) Temp Pulse Resp BP Pulse Ox 11/02/17 20:00 98.6 F 98 19 152/80 H 92 L 11/02/17 18:30 98 24 H 99 11/02/17 16:00 98.9 F 89 18 151/89 H 93 L 11/02/17 14:06 86 24 H 95 11/02/17 12:00 99.0 F 96 20 150/84 H 95 11/02/17 10:45 95 22 H 95 Weight Admit Weight 233 lb 3 oz Weight 225 lb 14.4 oz I&O: 11/01/17 11/02/17 11/03/17 06:59 06:59 06:59 Intake Total 2726 1350 Output Total 975 2700 600 Balance 1751 -1350 -600 Result Diagrams: 11/02/17 05:27 11/02/17 05:27 EKG Reviewed by me: Yes (Tele SR) Phys Exam - Physical Examination Constitutional: NAD Respiratory: no wheezing, no rhonchi Dec AE at bases Cardiovascular: RRR, no rub Gastrointestinal: soft, positive bowel sounds Musculoskeletal: edema present Neuro - no significant change, hyperreflexic Dx/Plan - Plan DVT proph w/SCDs IMPRESSION: 1. Toxic Metabolic Encephalopathy - multifactorial. prob due to Pneumonia ? Aspiration with Serotonin syndrome / Acute gout flare - improving 2. Anemia - prob due to chronic disease s/p 1 unit PRBC - GI following 3. Swallow dys - NPO due to AMS 4. Moderate PEM 5. HTN / HLD / Deconditioning / Recent UTI with Wellbutrin dose increase at [facility] / Recent C diff at [facility] to [facility]/ Depression / Coagulopathy prob due to vit K def - improving / obesity BMI 34.9 / ?BRANDON / Hypokalemia/ Hypernatremia 6. Other issues per H&P PLAN: * Cont Solumedrol 40 mg daily * Cont Atbx * Cont Ativan PRN * Neuro/ID/GI/Critical care following * Cont IVF at 50 ml/hr * Cont current meds as below * AM labs * Will consider tube feeds if stays NPO Review of Systems - Review of Systems Other: Cannot obtain due to current mentation - Medications/Allergies Allergies/Adverse Reactions: Allergies Allergy/AdvReac Type Severity Reaction Status Date / Time ciprofloxacin [From Cipro] Allergy Verified 10/23/17 23:04 colchicine Allergy Verified 10/23/17 23:04 levofloxacin [From Levaquin] Allergy Verified 10/23/17 23:04 Sulfa (Sulfonamide Allergy Verified 10/23/17 23:04 Antibiotics) Medications: Current Medications Acetaminophen (Tylenol) 650 mg PO Q6H PRN PRN Reason: Headache/Fever or Pain Last Admin: 10/27/17 09:14 Dose: 650 mg Acetaminophen (Tylenol) 650 mg ID Q6H PRN PRN Reason: FEVER/PAIN Last Admin: 10/29/17 04:03 Dose: 650 mg Albuterol/Ipratropium (Duoneb) 3 ml NEB [id number] [facility] Last Admin: 11/02/17 18:30 Dose: 3 ml Albuterol/Ipratropium (Duoneb) 3 ml NEB [id number] PRN PRN Reason: SOB &/or Wheezing Bisacodyl (Dulcolax) 10 mg PO DAILYPRN PRN PRN Reason: Constipation Calcium/Vitamin D (Caltrate 600 + Vit D) 1 tab PO BID-[facility] Last Admin: 11/02/17 21:21 Dose: Not Given Fentanyl (Sublimaze) 25 mcg SLOW IVP Q4H PRN PRN Reason: Severe Pain (7-10) Last Admin: 10/29/17 00:11 Dose: 25 mcg Folic Acid (Folvite) 1 mg PO DAILY [facility] Last Admin: 11/02/17 07:34 Dose: Not Given Hydralazine HCl (Apresoline) 10 mg SLOW IVP Q4H PRN PRN Reason: FOR SBP > 170 Azithromycin 500 mg/ Sodium (Chloride) 250 mls @ 250 mls/hr IVPB Q24HR [facility] Last Admin: 11/02/17 14:16 Dose: 250 mls Cefepime HCl 1 gm/Miscellaneous Medication 1 each/ Sodium Chloride 10 mls @ 120 mls/hr SLOW IVP Q8HR [facility] Last Admin: 11/02/17 22:05 Dose: 10 mls Dextrose/Water (D5w) 1,000 mls @ 50 mls/hr IV .Q20H [facility] Last Admin: 11/02/17 22:01 Dose: 1,000 mls Vancomycin HCl 500 mg/ Sodium (Chloride) 100 mls @ 100 mls/hr IVPB Q2D@1200 [facility] Labetalol HCl (Normodyne) 10 mg SLOW IVP Q4H PRN PRN Reason: Systolic BP > 160 Levothyroxine Sodium (Synthroid) 50 mcg IVP 0600 [facility] Last Admin: 11/02/17 05:19 Dose: 50 mcg Lorazepam (Ativan) 0.5 mg SLOW IVP Q2H PRN PRN Reason: Anxiety/Agitation Last Admin: 11/02/17 18:03 Dose: 0.5 mg Methylprednisolone Sodium Succinate (Solu-Medrol) 40 mg IVP DAILY [facility] Last Admin: 11/02/17 08:20 Dose: 40 mg Miscellaneous Medication (Pharmacy To Dose) 0 each IVPB ASDIR PRN PRN Reason: Pharmacy to Dose VANCOMYCIN Multivitamins (Theragran) 1 tab PO DAILY [facility] Last Admin: 11/02/17 07:34 Dose: Not Given Nitroglycerin (Nitrostat) 0.4 mg PO Q5MIN PRN PRN Reason: Chest Pain Nitroglycerin (Nitro-Bid 2% Ointment) 0.5 inch TOP Q8HR [facility] Last Admin: 11/02/17 22:06 Dose: 0.5 inch Nystatin (Mycostatin Powder) 0 gm TOP BID [facility] Last Admin: 11/02/17 21:59 Dose: 1 applic Pantoprazole Sodium (Protonix) 40 mg IVP BID [facility] Last Admin: 11/02/17 21:59 Dose: 40 mg Senna (Senokot) 2 tab PO HSPRN PRN PRN Reason: Constipation Sodium Chloride (Flush - Normal Saline) 10 ml IVF Q12HR [facility] Last Admin: 11/02/17 21:59 Dose: 10 ml Sodium Chloride (Flush - Normal Saline) 10 ml IVF PRN PRN PRN Reason: Saline Flush Last Admin: 10/31/17 13:44 Dose: 10 ml
--- NOTE | 2017-11-02 23:01 | PRG ---
DATE OF SERVICE: 11/02/2017 SUBJECTIVE: Elaine Chu really has not changed for the better. She is still poor responsive and en cephalopathic. PHYSICAL EXAMINATION: VITAL SIGNS: She is afebrile, heart rate is 90, respiratory rate is 19, oximetry is 92, blood pressu re 152/80. LUNGS: Remarkable for coarse equal breath sounds. She continues to protect her airway. HEART: Reg ular rhythm. ABDOMEN: Soft. IMPRESSION: 1. Encephalopathy of unclear etiology. 2. Chronic kidney disease. 3. ? Serotonin syndrome, it should have resolved by now, so I doubt that the diagnosis that explains her encephalopathy. 4. Anemia. 5. Pneumonia, community acquired. 6. History of hypertension. 7. Preexisting poor functional status, living in a alf. MRI would be nice and certainly the risk of giving her gadolinium, I think it is acceptable at this p oint. Her motion probably will interfere with images. I do not see any notes from Neurology since t . It would be nice for Neurology continued to follow the patient. The last note was on the . Continue with supportive care. Prognosis I think it is quite poor. We do not have any clear evidence of Staphylococcal infection so it might be reasonable to stop her v ancomycin in my opinion. Cultures are negative so far.
[2017-11-03] MEDS: Lorazepam 2 MG/ML VIAL SLOW IVP PRN (00:19)
[2017-11-03 04:36] LABS: ALT (SGPT) 27 U/L (8-55); AST (SGOT) 38 U/L (5-34); Albumin 2.2 g/dL (3.4-4.8); Alkaline Phosphatase 160 U/L (40-150); Bilirubin, Direct 0.3 mg/dL (0.1-0.3); Bilirubin, Total 0.5 mg/dL (0.2-1.2); Protein, Total 6.1 g/dL (6.0-8.3)
[2017-11-03 04:37] LABS: Anion Gap 13 mmol/L (10-20); BUN (Urea Nitrogen) 36 mg/dL (9.8-20.1); Calc. Creatinine Clearance 32 mL/min (70-130); Calcium 7.6 mg/dL (7.8-10.44); Carbon Dioxide 23 mmol/L (23-31); Chloride 104 mmol/L (98-107); Estimated GFR-MDRD 19; Glucose 105 mg/dL (83-110); Magnesium 1.6 mg/dL (1.6-2.6); Phosphorus 2.8 mg/dL (2.3-4.7); Potassium 3.8 mmol/L (3.5-5.1); Sodium 136 mmol/L (136-145)
[2017-11-03 04:49] LABS: Band 2 % (5-11); Hemoglobin 7.6 g/dL (12.0-16.0); Hypochromia SLIGHT = 6-15 cells (100X) (0-5/hpf); Lymphocytes 5 % (21-51); MDiff Complete? YES; Mean Corpuscular HGB CONC 31.1 g/dL (32.0-36.0); Mean Corpuscular Hemoglobin 27.5 pg (27.0-31.0); Mean Corpuscular Volume 88.5 fl (81.0-99.0); Mean Platelet Volume 10.3 fL (7.4-10.4); Monocytes 3 % (0-10); Neutrophil 90 % (42-75); Platelet Count 155 thou/uL (130-400); Red Blood Cell (RBC) Count 2.78 mill/uL (4.20-5.40); White Blood Cell (WBC) Count 20.6 thou/uL (4.8-10.8)
[2017-11-03] MEDS: Levothyroxine 100 MCG SDV IVP SCH (06:05)
[2017-11-03] MEDS: Nitroglycerin 2% Ointment 1 INCH/1 GM Packet TOP SCH ×3 (06:06→21:10)
[2017-11-03] MEDS: Cefepime 1 GM, Admixture Fee 1 EACH in Sodium Chloride 0.9% 10 ML SLOW IVP SCH ×3 (06:06→21:09)
[2017-11-03] MEDS: Pantoprazole 40 MG VIAL IVP SCH ×2 (08:12→21:09)
[2017-11-03] MEDS: Folic Acid 1 MG TAB PO SCH (08:12)
[2017-11-03] MEDS: Calcium Carbonate + Vit D 1 TAB PO SCH ×2 (08:12→18:05)
[2017-11-03] MEDS: Multivit, Therapeutic 1 TAB PO SCH (08:12)
[2017-11-03] MEDS: Nystatin Powder 15 GM BOT TOP SCH ×2 (08:13→21:10)
--- NOTE | 2017-11-03 12:37 | PRG ---
DATE OF SERVICE: 11/03/2017 SUBJECTIVE: The patient looks worse today. She is no longer agitated and yelling out. Dobbhoff was not placed. Family is considering hospice. OBJECTIVE: VITAL SIGNS: Temperature 97.0, pulse 96, respiratory rate 20, blood pressure 164/80. CHEST: Clear. CARDIOVASCULAR: Regular rate and rhythm. ABDOMEN: Benign. LABORATORY DATA: Shows white blood cell count of 20.6, hemoglobin 7.6, hematocrit of 24.6. Chemistr ies significant for BUN 36, creatinine 2.43, AST of 38, and alkaline phosphatase of 160. ASSESSMENT: 1. Malnutrition. 2. Altered mental status. 3. Pneumonia. RECOMMENDATIONS: Would need to begin some sort of feeding, preferably enteral nutrition. We will di scuss a Dobbhoff placement if the patient is not inclined towards hospice.
[2017-11-03] MEDS: Azithromycin 500 MG in Sodium Chloride 0.9% 250 ML 250 ML IVPB SCH (13:47)
--- NOTE | 2017-11-03 14:19 | PDOC.PN ---
- Subjective Encounter Start Date: 11/03/17 Encounter Start Time: 13:00 -: non-verbal Patient remains non verbal, Discussed with [facility] nurse, pt family prefer to be DNR/ DNI, with poor prognosis updated to Family. - Objective Resuscitation Status: Resuscitation Status DNR:Do Not Resuscitate MAR Reviewed: Yes Vital Signs & Weight: Vital Signs (12 hours) Temp Pulse Resp BP Pulse Ox 11/03/17 12:49 97.9 F 88 24 H 158/82 H 97 11/03/17 10:54 96 20 100 11/03/17 07:57 97 F L 91 24 H 164/80 H 98 11/03/17 07:36 98 11/03/17 07:35 95 22 H 98 11/03/17 04:00 97.9 F 94 20 167/78 H 97 Weight Admit Weight 233 lb 3 oz Weight 223 lb 1.6 oz I&O: 11/02/17 11/03/17 11/04/17 06:59 06:59 06:59 Intake Total 1350 655 Output Total 2700 900 Balance -1350 -245 Result Diagrams: 11/03/17 03:54 11/03/17 03:54 Radiology Reviewed by me: Yes Phys Exam - Physical Examination HEENT: PERRLA, moist MMs Neck: no nodes, no JVD Respiratory: wheezing present Cardiovascular: RRR, no significant murmur Gastrointestinal: soft, non-tender Musculoskeletal: no edema Neurological: non-focal, normal sensation Lymphatic: no nodes Psychiatric: normal affect, A&O x 3 Skin: no rash, normal turgor Dx/Plan (1) Acute respiratory failure with hypoxia Code(s): J96.01 - ACUTE RESPIRATORY FAILURE WITH HYPOXIA Status: Acute Comment: Continue with nasal Canula, No Intubation. Will transfer pt to (2) Aspiration pneumonia Code(s): J69.0 - PNEUMONITIS DUE TO INHALATION OF FOOD AND VOMIT Status: Acute Comment: Will continue with IV antibitoics, meropenam. (3) Sepsis Code(s): A41.9 - SEPSIS, UNSPECIFIED ORGANISM Status: Acute Comment: patient is seen today, worseing Sepsis. with worseing mentation. 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 - Discharge Day Encounter end time: 13:35 Review of Systems - Review of Systems Constitutional: negative: fever, chills, sweats, weakness, malaise, other Eyes: negative: Pain, Vision Change, Conjunctivae Inflammation, Eyelid Inflammation, Redness, Other ENT: negative: Ear Pain, Ear Discharge, Nose Pain, Nose Discharge, Nose Congestion, Mouth Pain, Mouth Swelling, Throat Pain, Throat Swelling, Other Respiratory: negative: Cough, Dry, Shortness of Breath, Hemoptysis, SOB with Excertion, Pleuritic Pain, Sputum, Wheezing Cardiovascular: negative: chest pain, palpitations, orthopnea, paroxysmal nocturnal dyspnea, edema, light headedness, other Gastrointestinal: negative: Nausea, Vomiting, Abdominal Pain, Diarrhea, Constipation, Melena, Hematochezia, Other Musculoskeletal: negative: Neck Pain, Shoulder Pain, Arm Pain, Back Pain, Hand Pain, Leg Pain, Foot Pain, Other Skin: negative: Rash, Lesions, Beck, Bruising, Other - Medications/Allergies Allergies/Adverse Reactions: Allergies Allergy/AdvReac Type Severity Reaction Status Date / Time ciprofloxacin [From Cipro] Allergy Verified 10/23/17 23:04 colchicine Allergy Verified 10/23/17 23:04 levofloxacin [From Levaquin] Allergy Verified 10/23/17 23:04 Sulfa (Sulfonamide Allergy Verified 10/23/17 23:04 Antibiotics) Medications: Current Medications Acetaminophen (Tylenol) 650 mg PO Q6H PRN PRN Reason: Headache/Fever or Pain Last Admin: 10/27/17 09:14 Dose: 650 mg Acetaminophen (Tylenol) 650 mg [place] Q6H PRN PRN Reason: FEVER/PAIN Last Admin: 10/29/17 04:03 Dose: 650 mg Albuterol/Ipratropium (Duoneb) 3 ml NEB [id number] DAGO Last Admin: 11/03/17 10:54 Dose: 3 ml Albuterol/Ipratropium (Duoneb) 3 ml NEB [id number] PRN PRN Reason: SOB &/or Wheezing Bisacodyl (Dulcolax) 10 mg PO DAILYPRN PRN PRN Reason: Constipation Calcium/Vitamin D (Caltrate 600 + Vit D) 1 tab PO BID-[facility] Last Admin: 11/03/17 08:12 Dose: Not Given Fentanyl (Sublimaze) 25 mcg SLOW IVP Q4H PRN PRN Reason: Severe Pain (7-10) Last Admin: 10/29/17 00:11 Dose: 25 mcg Folic Acid (Folvite) 1 mg PO DAILY [facility] Last Admin: 11/03/17 08:12 Dose: Not Given Hydralazine HCl (Apresoline) 10 mg SLOW IVP Q4H PRN PRN Reason: FOR SBP > 170 Azithromycin 500 mg/ Sodium (Chloride) 250 mls @ 250 mls/hr IVPB Q24HR [facility] Last Admin: 11/03/17 13:47 Dose: 250 mls Cefepime HCl 1 gm/Miscellaneous Medication 1 each/ Sodium Chloride 10 mls @ 120 mls/hr SLOW IVP Q8HR [facility] Last Admin: 11/03/17 06:06 Dose: 10 mls Dextrose/Water (D5w) 1,000 mls @ 50 mls/hr IV .Q20H [facility] Last Admin: 11/02/17 22:01 Dose: 1,000 mls Vancomycin HCl 500 mg/ Sodium (Chloride) 100 mls @ 100 mls/hr IVPB Q2D@1200 [facility] Labetalol HCl (Normodyne) 10 mg SLOW IVP Q4H PRN PRN Reason: Systolic BP > 160 Levothyroxine Sodium (Synthroid) 50 mcg IVP 0600 [facility] Last Admin: 11/03/17 06:05 Dose: 50 mcg Lorazepam (Ativan) 0.5 mg SLOW IVP Q2H PRN PRN Reason: Anxiety/Agitation Last Admin: 11/03/17 00:19 Dose: 0.5 mg Methylprednisolone Sodium Succinate (Solu-Medrol) 40 mg IVP DAILY [facility] Last Admin: 11/03/17 08:12 Dose: 40 mg Miscellaneous Medication (Pharmacy To Dose) 0 each IVPB ASDIR PRN PRN Reason: Pharmacy to Dose VANCOMYCIN Multivitamins (Theragran) 1 tab PO DAILY [facility] Last Admin: 11/03/17 08:12 Dose: Not Given Nitroglycerin (Nitrostat) 0.4 mg PO Q5MIN PRN PRN Reason: Chest Pain Nitroglycerin (Nitro-Bid 2% Ointment) 0.5 inch TOP Q8HR [facility] Last Admin: 11/03/17 06:06 Dose: 0.5 inch Nystatin (Mycostatin Powder) 0 gm TOP BID DAGO Last Admin: 11/03/17 08:13 Dose: 1 applic Pantoprazole Sodium (Protonix) 40 mg IVP BID DAGO Last Admin: 11/03/17 08:12 Dose: 40 mg Senna (Senokot) 2 tab PO HSPRN PRN PRN Reason: Constipation Sodium Chloride (Flush - Normal Saline) 10 ml IVF Q12HR DAGO Last Admin: 11/03/17 08:12 Dose: 10 ml Sodium Chloride (Flush - Normal Saline) 10 ml IVF PRN PRN PRN Reason: Saline Flush Last Admin: 10/31/17 13:44 Dose: 10 ml
--- NOTE | 2017-11-03 16:24 | PRG ---
DATE OF SERVICE: 11/03/2017 SUBJECTIVE: Ms. Chu is clinically unchanged. PHYSICAL EXAMINATION: VITAL SIGNS: She is afebrile, heart rate is 88, respiratory rate 24, oximetry is 97%, blood pressure 158/82. LUNGS: Remarkable for mild rhonchi. HEART: Regular rhythm. ABDOMEN: Soft. LABORATORY DATA: White count 20.6, hemoglobin 7.6, and platelets 155,000. Sodium 136, potassium 3.8 , chloride 104, bicarbonate 23, BUN 36, creatinine 2.43. IMPRESSION: 1. Multiorgan dysfunction. 2. Pneumonia. 3. Persistent encephalopathy? brain stem stroke. PLAN: Supportive care. Inpatient hospice in my opinion would be appropriate for her. I do not thin k any type of feeding tube Dobbhoff or PEG will lengthen her life. She had to be intubated to place a PEG. I think that it is a bad idea in my opinion.
[2017-11-04] MEDS: Dextrose 5% in Water 1,000 ML IV SCH (03:36)
[2017-11-04 04:19] LABS: Anion Gap 15 mmol/L (10-20); BUN (Urea Nitrogen) 39 mg/dL (9.8-20.1); Calc. Creatinine Clearance 28 mL/min (70-130); Calcium 7.5 mg/dL (7.8-10.44); Carbon Dioxide 23 mmol/L (23-31); Chloride 104 mmol/L (98-107); Estimated GFR-MDRD 17; Glucose 130 mg/dL (83-110); Potassium 4.1 mmol/L (3.5-5.1); Sodium 138 mmol/L (136-145)
[2017-11-04] MEDS: Nitroglycerin 2% Ointment 1 INCH/1 GM Packet TOP SCH ×2 (05:44→14:15)
[2017-11-04] MEDS: Cefepime 1 GM, Admixture Fee 1 EACH in Sodium Chloride 0.9% 10 ML SLOW IVP SCH ×2 (05:45→14:14)
[2017-11-04] MEDS: Levothyroxine 100 MCG SDV IVP SCH (05:48)
[2017-11-04] MEDS: Folic Acid 1 MG TAB PO SCH (08:17)
[2017-11-04] MEDS: Calcium Carbonate + Vit D 1 TAB PO SCH ×2 (08:17→16:48)
[2017-11-04] MEDS: Multivit, Therapeutic 1 TAB PO SCH (08:17)
[2017-11-04] MEDS: Nystatin Powder 15 GM BOT TOP SCH (11:16)
[2017-11-04] MEDS: Pantoprazole 40 MG VIAL IVP SCH (11:26)
--- NOTE | 2017-11-04 11:27 | PDOC.PN ---
- Subjective Encounter Start Date: 11/04/17 Encounter Start Time: 11:25 Ms. Chu was seen today in follow-up of metabolic encephalopathy. The patient is unresponsive. She is very ill appearing, and appears dyspneic. - Objective Resuscitation Status: Resuscitation Status DNR:Do Not Resuscitate MAR Reviewed: Yes Vital Signs & Weight: Vital Signs (12 hours) Temp Pulse Resp BP Pulse Ox 11/04/17 11:16 98.6 F 97 27 H 158/73 H 98 11/04/17 10:50 99 20 11/04/17 08:39 95 22 H 11/04/17 08:02 99.0 F 93 24 H 140/56 L 95 11/04/17 07:31 97.8 F 95 25 H 98 11/04/17 04:25 92 L 11/04/17 04:00 97.8 F 95 25 H 167/70 H 93 L 11/03/17 23:56 98.6 F 99 23 H 163/68 H 97 Weight Admit Weight 233 lb 3 oz Weight 220 lb 12.8 oz I&O: 11/03/17 11/04/17 11/05/17 06:59 06:59 06:59 Intake Total 655 1270 Output Total 900 875 Balance -245 395 Result Diagrams: 11/03/17 03:54 11/04/17 03:37 Phys Exam - Physical Examination HEENT: PERRLA Respiratory: wheezing present + bilateral wheezing and rales at the bases Cardiovascular: RRR, no significant murmur, no rub tachycardic Gastrointestinal: soft, no distention, positive bowel sounds Musculoskeletal: edema present + generalized edema Dx/Plan (1) Acute metabolic encephalopathy Code(s): G93.41 - METABOLIC ENCEPHALOPATHY Status: Acute (2) Acute renal failure Status: Acute (3) Chronic diastolic heart failure Code(s): I50.32 - CHRONIC DIASTOLIC (CONGESTIVE) HEART FAILURE Status: Acute (4) Aspiration pneumonia Code(s): J69.0 - PNEUMONITIS DUE TO INHALATION OF FOOD AND VOMIT Status: Acute Comment: Will continue with IV antibitoics, meropenam. - Plan * Patient was admitted with acute metabolic encephalopathy- the etiology of which is not clear. She has not improved despite Broad spectum antibiotics for the treatment of UTI, and Pneumonia- (HAP vs. Aspiration). She was also felt to possibly have serotonin syndrome, but she has not improved despite the withdrawal of Zoloft. * Her prognosis is guarded, and her son, has decided on Hospice care. * Will discontinue active treatment of pneumonia, once she is accepted to In- patient Hospice
[2017-11-04] MEDS ORDERED: Vancomycin HCl 500 MG in Sodium Chloride 0.9% 100 ML IVPB SCH (13:00)
[2017-11-04] MEDS: Azithromycin 500 MG in Sodium Chloride 0.9% 250 ML 250 ML IVPB SCH (14:13)
[2017-11-04 15:24] VITALS: BP 138/74; TEMP 98.7
--- NOTE | 2017-11-05 05:05 | DIS ---
PRIMARY CARE PHYSICIAN: Des Nguyen M.D. DATE OF ADMISSION: 10/25/2017 DATE OF DISCHARGE: 11/04/2017 DISCHARGE DISPOSITION: To inpatient hospice. DISCHARGE DIAGNOSES: 1. Metabolic encephalopathy, etiology is unknown. 2. Chronic diastolic heart disease. 3. Acute renal failure. 4. Hypertension. 5. Hypothyroidism. 6. History of depression. 7. Anemia, likely from chronic disease. DISCHARGE MEDICATIONS: To be determined by inpatient hospice. CODE STATUS: DNR. MAJOR PROCEDURES DONE DURING ADMISSION: The patient had a CT scan of the brain, which was essentiall y negative for any acute intracranial process. There were some findings of chronic mild small vessel ischemic changes and some cerebral volume loss. The patient had lower extremity venous Dopplers, wh ich were negative for DVT and an abdominal ultrasound, which was negative for any significant finding s. There was no acute abnormality and there was nonvisualization of the gallbladder. The patient al so had an echocardiogram in which the ejection fraction was estimated at 60% to 65%. There was some E to A flow reversal suggestive of diastolic dysfunction. ALLERGIES: CIPROFLOXIN, COLCHICINE, LEVOFLOXACIN, and SULFA. HOSPITAL COURSE: Ms. Chu is a 77-year-old female, who was brought to the hospital after she was not ed to have altered mental status. She seemed confused and her son was concerned that she may have a urinary tract infection as she has had this before. She was evaluated in the ER and chest x-ray show ed some possible infiltrate and she was started on cefepime and vancomycin for possible hospital-acqu ired pneumonia. She was also found to have an elevation in her liver function test and anemia. For this reason, Gastroenterology was consulted. It was felt that the anemia was most likely consistent with anemia of chronic disease. Due to the elevation in liver function tests, an abdominal ultrasoun d was ordered, which was essentially negative. She was also seen by Dr. 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 She did continue treatment for possi ble pneumonia; however. The patient did not improve, unfortunately, during the course of her [facility] stay after several days of IV antibiotics and as a result, Neurology was consulted and it was felt that she could possibly have a serotonin syndrome as she had been on Zoloft. This was discontinued i n hopes that this would improve her mental status. However, it did not and the patient continued to be confused. It is also noted that during her hospital stay, her renal function actually worsened, d uring her stay despite treatment, and also noted an elevation in her white blood cell count during he r hospital stay which could be related to steroid use in efforts to treat the possible serotonin synd awais. The patient's condition continued to deteriorate and therefore conversations were made with chase valdez to her prognosis with the family and then her son decided to transition her to comfort care onl y and transition her to inpatient hospice, which was done on 11/04/2017.
--- NOTE | 2017-11-06 22:58 | EKG ---
Test Reason : SOB Blood Pressure : / mmHG Vent. Rate : 074 BPM Atrial Rate : 074 BPM P-R Int : 204 ms QRS Dur : 094 ms QT Int : 410 ms P-R-T Axes : 059 -19 084 degrees QTc Int : 455 ms Normal sinus rhythm Normal ECG Confirmed by NICK ZEPEDA, BOBBY ([id number]), development editor CANDELARIO SUAZO ([id number]) on 11/06/2017 10:57:49 PM Referred By: Confirmed By:BOBBY ROMERO MD
--- NOTE | 2017-11-10 14:15 | PQF ---
STEFFEN DE LA TORRE TONI MD [id number] CLINICAL DOCUMENTATION CLARIFICATION FORM: POST DISCHARGE Addendum to original discharge summary date: ____ Late entry note date: __ DATE: 11/10/17 ATTN: DR ANTONIO Please exercise your independent, professional judgment in responding to the clarification form. Clinical indicators are provided on the bottom of this form for your review Please check appropriate box(es): [ X ] Sepsis due to: (Pna, UTI, gangrenous gall bladder, etc.) Pneumonia__ Due to: [ ] Device (please specify) [ ] Implant [ ] Graft [ ] Infusion [ ] SIRS due to non-infectious process (please specify etiology) [ ] with organ dysfunction [ ] without organ dysfunction [ ] Severe sepsis with acute organ dysfunction of: (Examples: respiratory failure, encephalopathy, acute kidney failure, other) [ ] Septic Shock [ ] Localized infection without sepsis [ ] Other diagnosis [ ] Unable to determine In addition, please specify: Present on Admission (POA): [ X] Yes [ ] No [ ] Unable to determine For continuity of documentation, please document condition throughout progress notes and discharge summary. Thank You. CLINICAL INDICATORS - SIGNS / SYMPTOMS / LABS Altered mental status Respiratory rate >20/min, Hypoxemia, RISK FACTORS Pneumonia, PREVIOUS UTI Advancing Age TREATMENTS: Initiation Sepsis Protocol ICU Daily CBC ID Consult IV antibiotics - broad spectrum IV Fluids Documentation of Sepsis and Sepsis protocol initiated, and documentation of "worsening sepsis" on progress note 11/03/[address] Castaneda (This form is maintained as a part of the permanent medical record) 2014 [employer] All Rights Reserved Pepper [email or web address] [phone] [facility] SYSTEMChip
== END 2017-11-04 19:57 | disposition hospice, inpatient (51) | DRG 177 ==
LOC: ERS 17:51 → 2NO 22:20 → IMCU/EMU 10-27 13:49
PROVIDERS: ADMIT Internal Medicine; ATTEND Internal Medicine
PROC: 30233N1 Transfusion of Nonautologous Red Blood Cells into Peripheral Vein, Percutaneous Approach (ICD-10-PCS; principal; 2017-10-24)
DX: J69.0 Pneumonitis due to inhalation of food and vomit (principal); J96.01 Acute respiratory failure with hypoxia; G93.41 Metabolic encephalopathy; E44.0 Moderate protein-calorie malnutrition; I13.0 Hypertensive heart and chronic kidney disease with heart failure and stage 1 through stage 4 chronic kidney disease, or unspecified chronic kidney disease; N17.9 Acute kidney failure, unspecified; L89.323 Pressure ulcer of left buttock, stage 3; I50.32 Chronic diastolic (congestive) heart failure; Z51.5 Encounter for palliative care; D63.8 Anemia in other chronic diseases classified elsewhere; E86.0 Dehydration; E03.9 Hypothyroidism, unspecified; F32.9 Major depressive disorder, single episode, unspecified; E78.00 Pure hypercholesterolemia, unspecified; Z88.1 Allergy status to other antibiotic agents; Z88.2 Allergy status to sulfonamides; M10.9 Gout, unspecified; N18.9 Chronic kidney disease, unspecified; H57.04 Mydriasis; R00.0 Tachycardia, unspecified; Z66 Do not resuscitate; T43.225A Adverse effect of selective serotonin reuptake inhibitors, initial encounter; G25.79 Other drug induced movement disorders; E83.42 Hypomagnesemia; E66.9 Obesity, unspecified; Z68.34 Body mass index [BMI] 34.0-34.9, adult; E87.6 Hypokalemia
CPT/HCPCS: 36415; 36416; 36430; 51701; 70450; 71045; 74018; 76705; 80048; 80053; 80069; 80074; 80076; 80202; 81003; 82103; 82104; 82140; 82274; 82330; 82550; 82553; 82607; 82728; 82746; 82803; 82805; 83516; 83540; 83550; 83605; 83690; 83735; 83880; 84100; 84484; 84550; 85025; 85046; 85610; 85652; 85730; 86038; 86140; 86225; 86235; 86850; 86900; 86901; 87040; 87086; 87804; 87899; 89060; 90471; 90682; 93005; 93306; 93970; 94640; 94760; 95816; 95819; 96365; 96367; 96375; A4216; A4353; C9113; G0008; G8978-GP-CM; G8979-GP-CL; G8987-GO-CM; G8988-GO-CK; G8996-GN-CM; G8997-GN-CI; J0456; J0692; J0696; J1940; J2060; J2543; J2920; J3370; J3430; J3480; J7050; J7620; P9016; Q2036; S0028